=== PATIENT | female | born 1965 | race African-American/Black ===

== ENCOUNTER 2017-05-22 07:01 | Day surgery (SDC) | payer OTHER ==
[2017-05-21 17:03] VITALS: BMI 41.5
[2017-05-22] MEDS ORDERED: BETAMET ACET/BETAMET NA PH 30 MG/5 ML VIAL ONE (08:06)
[2017-05-22] MEDS ORDERED: LIDOCAINE HCL 1%, 10 MG/ML (20ML VIAL) ONE (08:06)
[2017-05-22] MEDS ORDERED: BUPIVACAINE HCL/PF 0.25% (2.5MG/ML) 10 ML VIAL ONE ×2 (08:06→12:44)
[2017-05-22] MEDS ORDERED: BETAMET ACET/BETAMET NA PH 30 MG/5 ML VIAL IJ ONE ×2 (08:35→08:43)
[2017-05-22] MEDS ORDERED: LIDOCAINE HCL 1%, 10 MG/ML (50 mL VIAL) IJ ONE ×2 (08:35→08:43)
[2017-05-22] MEDS ORDERED: BUPIVACAINE HCL/PF 0.25% (2.5MG/ML) 10 ML VIAL IJ ONE ×2 (08:35→08:43)
[2017-05-22] MEDS ORDERED: IOHEXOL 180 MG/1 ML ML IJ ONE ×2 (08:35→08:43)
[2017-05-22] MEDS ORDERED: MIDAZOLAM HCL 2 MG/2 ML SINGLE DOSE VIAL ONE (08:39)
[2017-05-22] MEDS ORDERED: PROPOFOL 20 ML ONE (08:50)
--- NOTE | 2017-05-22 10:05 | OP ---
DATE OF OPERATION: 05/22/2017 PREOPERATIVE DIAGNOSES: Low back pain, lumbar radiculopathy. POSTOPERATIVE DIAGNOSES: Low back pain, lumbar radiculopathy. PROCEDURE: Lumbar epidural steroid injection interlaminar at right L5-S1 level. ANESTHESIA: Local and MAC. ANESTHESIOLOGIST: Jodie Tate CRNA INDICATION FOR PROCEDURE: I discussed with her about risks, benefits, and alternatives of treatment, not only limited to infection, fever, headache, numbness, tingling, weakness, injury to blood vessels, muscles, and nerves. Patient understood all these and signed the written consent. DESCRIPTION OF PROCEDURE: Patient was brought to the OR, placed in the prone position with the head, abdomen, and legs supported with pillows. Lumbosacral area was prepped and draped with Betadine x3 and alcohol x3. Under fluoroscopy, right L4-L5 and L5-S1 areas were identified. At L4-L5 level on the right side, 3 mL of 1% lidocaine was injected into the skin and subcutaneous tissue. A 20-gauze Tuohy needle was used to approach the epidural space at this level under intermittent fluoroscopy. Osteophyte was causing obstruction to the needle to go into the epidural space. Needle was withdrawn. Then, the L5-S1 level on the right side was identified and 3 mL of 1% lidocaine was infiltrated into the skin and subcutaneous tissue. A 20-gauze 6-inch Tuohy needle was used to approach the epidural space with loss of resistance technique under intermittent fluoroscopy AP and oblique view. After the aspiration of blood and CSF, 2 mL of Omnipaque 180 was injected to see the flow of dye into the epidural space both cranially and caudally. Next 2.5 mL of Celestone mixed with 2.5 mL of 0.25% Marcaine, total 5 mL was injected at this level after negative aspiration. Tuohy needle was withdrawn, and 1 mL of 1 % lidocaine was infiltrated. Bleeding was checked. Betadine was wiped off. Sterile bandage was placed. The patient tolerated the procedure well. There were no immediate complications. Patient was transferred to recovery room. Patient was observed and discharged as per ASU criteria. Patient was told to apply ice; if any problem, call me or report to the ER. Followup appointment was given. GREGORY VALDEZ M.D. [id number] MTDD
[2017-05-22 11:08] VITALS: BP 126/70; PULSE 64; TEMP 97.8
== END 2017-05-22 11:28 | disposition home or self-care (01) ==
LOC: JASU-SURG 07:01
PROVIDERS: ATTEND Physical Medicine & Rehabilitation
PROC: 3E0S33Z Introduction of Anti-inflammatory into Epidural Space, Percutaneous Approach (ICD-10-PCS; 2017-05-22)
PROC: B01BYZZ Fluoroscopy of Spinal Cord using Other Contrast (ICD-10-PCS; 2017-05-22)
PROC: 3E0S3BZ Introduction of Anesthetic Agent into Epidural Space, Percutaneous Approach (ICD-10-PCS; principal; 2017-05-22 09:00)
DX: M54.16 Radiculopathy, lumbar region (principal); M54.5 Low back pain
CPT/HCPCS: 76000-TC

== ENCOUNTER 2017-10-02 07:13 | Day surgery (SDC) | payer OTHER ==
[2017-10-01 08:40] VITALS: BMI 40.1
[2017-10-02 07:33] VITALS: TEMP 98
[2017-10-02] MEDS ORDERED: BUPIVACAINE HCL/PF 0.25% (2.5MG/ML) 10 ML VIAL ONE (08:23)
[2017-10-02] MEDS ORDERED: LIDOCAINE HCL 1%, 10 MG/ML (20ML VIAL) ONE (08:23)
[2017-10-02] MEDS ORDERED: BETAMET ACET/BETAMET NA PH 30 MG/5 ML VIAL ONE (08:23)
[2017-10-02] MEDS ORDERED: MIDAZOLAM HCL 2 MG/2 ML SINGLE DOSE VIAL ONE (09:39)
[2017-10-02] MEDS ORDERED: PROPOFOL 20 ML ONE (09:39)
[2017-10-02] MEDS ORDERED: LIDOCAINE HCL 1%, 10 MG/ML (20ML VIAL) INF ONE (10:06)
[2017-10-02] MEDS ORDERED: IOHEXOL 180 MG/1 ML ML IJ ONE (10:06)
[2017-10-02] MEDS ORDERED: BETAMET ACET/BETAMET NA PH 30 MG/5 ML VIAL IJ ONE (10:07)
[2017-10-02] MEDS ORDERED: BUPIVACAINE HCL/PF 0.25% (2.5MG/ML) 10 ML VIAL IJ ONE (10:08)
[2017-10-02 11:39] VITALS: BP 120/70; PULSE 64
--- NOTE | 2017-10-02 14:29 | PROC ---
Procedure Note Procedure: Date of service: 10/02/2017 Preoperative Diagnosis: Low back pain and lumbar radiculopathy on right Postoperative Diagnosis: Same Procedure Performed: Lumbar Epidural Steroid Injection (LESI) on Right L4-5 with dye under Fluoroscopy Anesthesia: Local / MAC Anesthesiologist: Procedure: I discussed with the patient in detail about the risks, benefits, and alternatives to treatment not only limited to infection, headache, numbness , weakness, and injury to nerves, blood vessels and muscles. The patient understood, agreed and signed the written consent. The patient was placed in the prone position with the head, abdomen and legs supported with the pillows. The lumbosacral area was prepped and draped with Betadine times three in a sterile fashion. Lumbar vertebrae were identified under the C-arm. At L4-5level on the right side, 3 ml of 1 % Lidocaine was infiltrated into the skin and subcutaneous tissue. A 3 inch, #20 gauge Tuohy needle was advanced to the epidural space with loss of resistance technique under fluoroscopic guidance. Aspiration was negative for cerebrospinal fluid and blood. 2ml of Omnipaque ( radio-opaque dye) was injected to confirm the tip of the needle into epidural space and spread of dye. There was no CSF or vascular spread. The spread of dye was noted cranially and caudally on epidurogram. Aspiration was done again which was negative. A solution of 2.5 ml of Celestone, 2.5 ml of 0.25% Marcaine and a total of 5 ml was injected slowly. While Tuohy needle was withdrawn 2.0 ml of 1 % Lidocaine was infiltrated. Bleeding was checked. Betadine was wiped off. A sterile bandage was placed. The patient tolerated the procedure well. There were no immediate complications. The patient was transferred to the recovery room. The patient was observed for some time and discharged as per ASU criteria. The patient was told to apply ice at the injection site. Follow up appointment was given and also call my office at [phone]. If there is any problem, call my office or report to Emergency Room. Gary Murphy M.D.
== END 2017-10-02 11:30 | disposition home or self-care (01) ==
LOC: JASU-SURG 07:13
PROVIDERS: ATTEND Physical Medicine & Rehabilitation
PROC: 3E0R33Z Introduction of Anti-inflammatory into Spinal Canal, Percutaneous Approach (ICD-10-PCS; 2017-10-02)
PROC: B01BYZZ Fluoroscopy of Spinal Cord using Other Contrast (ICD-10-PCS; 2017-10-02)
PROC: 3E0R3BZ Introduction of Anesthetic Agent into Spinal Canal, Percutaneous Approach (ICD-10-PCS; principal; 2017-10-02 08:30)
DX: M54.16 Radiculopathy, lumbar region (principal); M54.5 Low back pain
CPT/HCPCS: 76000-TC

== ENCOUNTER 2017-12-23 05:34 | Emergency (ER) | payer OTHER ==
--- NOTE | 2017-12-23 05:38 | PDOC ---
History of Present Illness - General Stated Complaint: SEVERE ABDOMINAL PAIN Time Seen by Provider: 12/23/17 05:38 History Source: Patient Exam Limitations: No Limitations - History of Present Illness Travel History: No Initial Comments: 12/23/17 05:56 Best Contact:[phone] Pmhx: GERD, asthma Pshx: January 2017: Right total knee replacement, 2008:right shoulder arthroscopy, 2017: Left total knee replacement Allergies: Dilantin ordered, morphine, Ultram/swelling 52-year-old female presents to the ER complaining of abdominal pain since yesterday. Patient states yesterday morning she felt 5/10 intermittent nonradiating epigastric discomfort. Last evening epigastric discomfort started radiating to the right/lower and upper abdominal discomfort without fever, chills, nausea/vomiting, chest pain, shortness of breath, flank pains, urinary symptoms: Frequency/urgency/hesitancy, hematuria. There are no alleviating factors but is exacerbated on touch. 12/11/2017: Patient had a upper endoscopy/gastric biopsy which showed elevation Past History - Past Medical History Allergies/Adverse Reactions: Allergies Allergy/AdvReac Type Severity Reaction Status Date / Time hydromorphone HCl Allergy "SWELLING Verified 05/22/17 07:37 [From Dilaudid] OF FACE,HANDS,FEET" morphine Allergy "VOMITING" Verified 05/22/17 07:37 oxycodone HCl Allergy "ITCHY" Verified 05/22/17 07:37 [From OxyContin] tramadol HCl [From Ultram] Allergy "SWELLING Verified 05/22/17 07:37 OF FACE,HANDS,FEET" acetaminophen [From Percocet] AdvReac "SHAKY Verified 05/22/17 07:37 STOMACH" MED FOR NAUSEA-NAME UNKNOWN Allergy Severe TONGUE Uncoded 05/22/17 07:37 SWELLING Home Medications: Ambulatory Orders Montelukast Na [Singulair -] 10 mg PO PRN PRN 06/25/14 Amlodipine Besylate [Norvasc -] 5 mg PO DAILY 05/22/17 Ascorbate Calcium [Vitamin C] 500 mg PO BID 05/22/17 Cetirizine HCl [Zyrtec -] 10 mg PO DAILY 05/22/17 Albuterol Sulfate [Proair Hfa] 8.5 gm IH PRN PRN 09/17/17 Famotidine [Pepcid] 40 mg PO TID 09/17/17 Omeprazole 40 mg PO DAILY 09/17/17 Albuterol Sulfate [Proair Hfa] 8.5 gm IH DAILY 12/23/17 Cetirizine HCl [Zyrtec -] 10 mg PO DAILY 12/23/17 Cyclobenzaprine HCl [Flexeril 10 mg] 10 mg PO BID PRN 12/23/17 Gabapentin [Neurontin] 300 mg PO DAILY 12/23/17 Mometasone/Formoterol [Dulera 200 Mcg/5 Mcg Inhaler] 2 inh IH BID 12/23/17 Asthma: Yes (MODERATE) Cardiac Disorders: Yes (NEGATIVE CATH) Diabetes: Yes ("BORDERLINE") GI Disorders: Yes (H/O "BLOCKAGE" 2009) Disorders: No Hypercholesterolemia: Yes ("SLIGHTLY HIGH") Liver Disease: No - Surgical History Abdominal Surgery: Yes (Intestinal sx) Orthopedic Surgery: Yes (RIGHT SHOULDER SURGERY) - Suicide/Smoking/Psychosocial Hx Smoking Status: No Smoking History: Former smoker Have you smoked in the past 12 months: No Number of Cigarettes Smoked Daily: 0 If you are a former smoker, when did you quit?: 2004 Hx Alcohol Use: No Drug/Substance Use Hx: No Substance Use Type: None Hx Substance Use Treatment: No Review of Systems - Review of Systems Able to Perform ROS?: Yes Comments:: 12/23/17 05:59 CONSTITUTIONAL: Absent: fever, chills, diaphoresis, generalized weakness, malaise, loss of appetite HEENT: Absent: rhinorrhea, nasal congestion, throat pain, throat swelling, difficulty swallowing, mouth swelling, ear pain, eye pain, visual Changes CARDIOVASCULAR: Absent: chest pain, loss of consciousness, palpitations, irregular heart rate, peripheral edema RESPIRATORY: Absent: cough, shortness of breath, dyspnea with exertion, orthopnea, wheezing, stridor, hemoptysis GASTROINTESTINAL: +Abd pain/ Epigastric/right sided abd pain Absent:abdominal distension, nausea, vomiting, diarrhea, constipation, melena, hematochezia GENITOURINARY: Absent: dysuria, frequency, urgency, hesitancy, hematuria, flank pain, genital pain MUSCULOSKELETAL: Absent: myalgia, arthralgia, joint swelling SKIN: Absent: rash, itching, pallor HEMATOLOGIC/IMMUNOLOGIC: Absent: easy bleeding, easy bruising, lymphadenopathy, frequent infections ENDOCRINE: Absent: unexplained weight gain, unexplained weight loss, heat intolerance, cold intolerance NEUROLOGIC: Absent: headache, focal weakness or paresthesias, dizziness, unsteady gait, seizure, mental status changes, bladder or bowel incontinence PSYCHIATRIC: Absent: anxiety, depression, suicidal or homicidal ideation, hallucinations. Is the patient limited Nigerian proficient: No *Physical Exam - Physical Exam Comments: 12/23/17 05:59 GENERAL: Well developed, well nourished. Awake and alert. No acute distress. HEENT: Normocephalic, atraumatic. PERRLA, EOMI. No conjunctival pallor. Sclera are non- icteric. Moist mucous membranes. Oropharynx is clear. NECK: Supple. Full ROM. No JVD. Carotid pulses 2+ and symmetric, without bruits. No thyromegaly. No lymphadenopathy. CARDIOVASCULAR: Regular rate and rhythm. No murmurs, rubs, or gallops. Distal pulses are 2+ and symmetric. PULMONARY: No evidence of respiratory distress. Lungs clear to auscultation bilaterally. No wheezing, rales or rhonchi. ABDOMINAL: +epigastric/RUQ>LUQ pain Soft. Non-distended. No rebound or guarding. No organomegaly. Normoactive bowel sounds. MUSCULOSKELETAL Normal range of motion at all joints. No bony deformities or tenderness. No CVA tenderness. EXTREMITIES: No cyanosis. No clubbing. No edema. No calf tenderness. SKIN: Warm and dry. Normal capillary refill. No rashes. No jaundice. NEUROLOGICAL: Alert, awake, appropriate. Cranial nerves 2-12 intact. No deficits to light touch and temperature in face, upper extremities and lower extremities. No motor deficits in the in face, upper extremities and lower extremities. Normoreflexic in the upper and lower extremities. Normal speech. Toes are down- going bilaterally. Gait is normal without ataxia. PSYCHIATRIC: Cooperative. Good eye contact. Appropriate mood and affect. ED Treatment Course - LABORATORY CBC & Chemistry Diagram: 12/23/17 05:41 12/23/17 05:41 Progress Note - Progress Note Progress Note: 0701hrs: Signed out to KARIN Conrad
[2017-12-23] MEDS ORDERED: SODIUM CHLORIDE 1,000 ML IV STA (05:39)
[2017-12-23 05:50] LABS: BASO % 0.8 % (0-2.0); EOS % 2.3 % (0-4.5); HEMATOCRIT 39.6 % (32.4-45.2); HEMOGLOBIN 13.6 GM/dL (10.7-15.3); LYMPH % 32.6 % (8-40); MCH 31.1 pg (25.7-33.7); MCHC 34.4 g/dl (32.0-36.0); MEAN CELL VOLUME 90.6 fl (80-96); MEAN PLT VOLUME 8.9 fl (7.5-11.1); MONO % 9.1 % (3.8-10.2); NEUT % 55.2 % (42.8-82.8); PLATELET COUNT 211 K/MM3 (134-434); RBC 4.36 M/mm3 (3.60-5.2); WHITE BLOOD COUNT 5.2 K/mm3 (4.0-10.0)
[2017-12-23 05:53] VITALS: BMI 39.9
[2017-12-23] MEDS ORDERED: morphine CARPU-JECT 2 MG/1 ML DISP.SYRIN IVPUSH ONE (06:00)
[2017-12-23] MEDS ORDERED: ONDANSETRON 4 MG/2 ML VIAL IVPUSH ONE (06:01)
[2017-12-23] MEDS ORDERED: morphine SULFATE 4 MG/ML VIAL ONE (06:08)
[2017-12-23] MEDS ORDERED: ONDANSETRON 4 MG/2 ML VIAL ONE (06:08)
[2017-12-23 06:14] LABS: ALBUMIN 4.2 g/dl (3.4-5.0); ALK PHOS 82 U/L (45-117); ANION GAP 6 (8-16); BILIRUBIN,TOTAL 0.5 mg/dL (0.2-1.0); BLOOD UREA NITROGEN 13 mg/dL (7-18); CALCIUM 9.3 mg/dL (8.5-10.1); CHLORIDE 108 mmol/L (98-107); CO2 25 mmol/L (21-32); CREATININE 0.8 mg/dL (0.55-1.02); GLUCOSE,RANDOM 110 mg/dL (74-106); POTASSIUM 3.8 mmol/L (3.5-5.1); SGOT/AST 10 U/L (15-37); SGPT/ALT 18 U/L (12-78); SODIUM 139 mmol/L (136-145); TOT PROT 7.3 g/dl (6.4-8.2)
[2017-12-23 06:17] LABS: URINE APPEARANCE CLEAR; URINE BILIRUBIN NEGATIVE (<2.0 mg/dL); URINE BLOOD NEGATIVE (NEGATIVE); URINE COLOR YELLOW; URINE GLUCOSE (UA) NEGATIVE (NEGATIVE); URINE KETONE NEGATIVE (NEGATIVE); URINE NITRITE NEGATIVE (NEGATIVE); URINE PROTEIN NEGATIVE (NEGATIVE)
[2017-12-23 06:28] LABS: URINE LEUK ESTERASE 3+ (NEGATIVE)
[2017-12-23 06:32] LABS: EPI CELLS RARE /HPF (FEW); URINE MUCUS RARE
[2017-12-23] MEDS ORDERED: MAG HYDROX/AL HYDROX/SIMETH 30 ML UNIT-DOSE CUP PO ONE (07:01)
[2017-12-23] MEDS ORDERED: MAG HYDROX/AL HYDROX/SIMETH 30 ML UNIT-DOSE CUP ONE (07:03)
[2017-12-23] MEDS ORDERED: amLODIPine BESYLATE 5 MG TABLET (FP) PO ONE (08:04)
[2017-12-23] MEDS ORDERED: PANTOPRAZOLE SODIUM 40 MG VIAL IVPUSH ONE (08:05)
--- NOTE | 2017-12-23 08:08 | PDOC ---
*Physical Exam - Vital Signs Last Vital Signs Temp Pulse Resp BP Pulse Ox 97.7 F 63 17 126/80 99 12/23/17 05:35 12/23/17 07:47 12/23/17 07:47 12/23/17 07:47 12/23/17 07:47 - Physical Exam General Appearance: Yes: Nourished, Obese HEENT: positive: Normal Voice Respiratory/Chest: positive: Lungs Clear Cardiovascular: positive: Regular Rate Gastrointestinal/Abdominal: positive: Normal Bowel Sounds, Tender (epigastric), Soft. negative: Guarding, Rebound Extremity: positive: Normal Inspection Integumentary: positive: Normal Color, Dry, Warm Neurologic: positive: Fully Oriented, Alert ED Treatment Course - LABORATORY CBC & Chemistry Diagram: 12/23/17 05:41 12/23/17 05:41 - ADDITIONAL ORDERS Additional order review: Laboratory Results 12/23/17 12/23/17 12/23/17 05:41 05:41 04:15 Sodium 139 Potassium 3.8 Chloride 108 H Carbon Dioxide 25 Anion Gap 6 L BUN 13 Creatinine 0.8 Creat Clearance w eGFR > 60 Random Glucose 110 H Calcium 9.3 Total Bilirubin 0.5 AST 10 L ALT 18 Alkaline Phosphatase 82 Total Protein 7.3 Albumin 4.2 Lipase 101 Urine Color Yellow Urine Appearance Clear Urine pH 7.0 Ur Specific Rueter 1.019 Urine Protein Negative Urine Glucose (UA) Negative Urine Ketones Negative Urine Blood Negative Urine Nitrite Negative Urine Bilirubin Negative Urine Urobilinogen 2.0 H Ur Leukocyte Esterase 3+ H D Urine WBC (Auto) 5 Urine RBC (Auto) 1 Ur Epithelial Cells Rare Urine Mucus Rare 12/23/17 05:41 RBC 4.36 MCV 90.6 MCHC 34.4 RDW 14.0 MPV 8.9 Neutrophils % 55.2 D Lymphocytes % 32.6 D Monocytes % 9.1 Eosinophils % 2.3 Basophils % 0.8 - Medications Given in the ED: ED Medications Discontinued Medications Generic Name Dose Route Start Last Admin Trade Name Freq PRN Reason Stop Dose Admin Al Hydroxide/Mg Hydroxide 30 ml 12/23/17 07:01 12/23/17 07:13 Mylanta Oral Suspension - PO 12/23/17 07:02 30 ml ONCE ONE Administration Sodium Chloride 1,000 mls @ 1,000 mls/hr 12/23/17 05:39 12/23/17 06:07 Normal Saline - IV 12/23/17 06:38 1,000 mls/hr ASDIR STA Administration Morphine Sulfate 2 mg 12/23/17 06:00 12/23/17 06:15 Morphine Injection - IVPUSH 12/23/17 06:01 2 mg ONCE ONE Administration Ondansetron HCl 4 mg 12/23/17 06:01 12/23/17 06:15 Zofran Injection IVPUSH 12/23/17 06:02 4 mg ONCE ONE Administration Medical Decision Making - Medical Decision Making 12/23/17 08:03 I have received report from SANDY Morris regarding this patient. Pt's initial chief complaint: epigastric pain then became diffuse Pt's work up completed prior to sign out:labs, start po contrast for CT of abd/ pelvis Pt treatment given from prior staff:pain meds Pt plan to be completed:CT abd/pelvic pending Dispo:home vs admission 12/23/17 08:05 Restarted home meds of norvasc 5 mg (did not take yesterday or today) Protonix for reflux (home med is pepcid and omeprezole) Pt states her surgical history is extensive for abd surgeries in the past -ovarian cysts, with bilateral removal by [employer]AFF NURSE -hysterectomy -small bowel obstructions -colectomy in past -bilateral TKR -right shoulder sx PMH: -asthma on Breo, singular, proair -HTN on norvasc -gerd on omeprezole and pepcid -LBP on flexeril PRN completed contrast orally 12/23/17 10:06 CT completed noted narrowing of the terminal ileum with focal dilatation of distal ileal loops There is mild degreee of inflammatory change within the adjacent mesenteric fat suggestive of Chron's disease. Pt will be discharge to home on a bland diet. she will be following up with her GI MD this week. Copy of report given to pt *DC/Admit/Observation/Transfer Diagnosis at time of Disposition: Epigastric discomfort - Discharge Dispostion Disposition: HOME Condition at time of disposition: Stable Admit: No - Referrals Referrals: Ian Cole MD [Primary Care Provider] - - Patient Instructions Printed Discharge Instructions: DI for Crohn's Disease Additional Instructions: Discharge instructions 1. Please follow up with your primary physician within the next few days and explain that you have been seen here in the Emergency Room. This includes going to your GI physician this week. Bring a copy of the report to your doctor to review 2. If you experience any worsening of symptoms, please return to the ER 3. Eat a bland diet,no alcohol, no spices, no heavy pastas or meats that are stringy. 4. Drink plenty of water - Post Discharge Activity Forms/Work/School Notes: Back to Work
[2017-12-23] MEDS ORDERED: amLODIPine BESYLATE 5 MG TABLET (FP) ONE (08:10)
[2017-12-23] MEDS ORDERED: PANTOPRAZOLE SODIUM 40 MG/100 ML BAG IVPB ONE (08:10)
[2017-12-23 10:46] VITALS: BP 125/71; PULSE 81; TEMP 98.1
== END 2017-12-23 10:35 | disposition home or self-care (01) ==
LOC: JER 05:34
PROC: 3E0337Z Introduction of Electrolytic and Water Balance Substance into Peripheral Vein, Percutaneous Approach (ICD-10-PCS; principal; 2017-12-23)
PROC: 3E033NZ Introduction of Analgesics, Hypnotics, Sedatives into Peripheral Vein, Percutaneous Approach (ICD-10-PCS; 2017-12-23)
PROC: 3E033GC Introduction of Other Therapeutic Substance into Peripheral Vein, Percutaneous Approach (ICD-10-PCS; 2017-12-23)
DX: K50.90 Crohn's disease, unspecified, without complications (principal); J45.40 Moderate persistent asthma, uncomplicated; E11.9 Type 2 diabetes mellitus without complications; E78.00 Pure hypercholesterolemia, unspecified; Z98.61 Coronary angioplasty status; Z87.891 Personal history of nicotine dependence; Z96.653 Presence of artificial knee joint, bilateral; Z87.19 Personal history of other diseases of the digestive system; Z90.49 Acquired absence of other specified parts of digestive tract; Z90.722 Acquired absence of ovaries, bilateral; Z88.8 Allergy status to other drugs, medicaments and biological substances
CPT/HCPCS: 36415; 74177-TC; 80053; 81003; 81015; 83690; 85025; 96361; 96374; 96375; 99283-25; J7030

== ENCOUNTER 2018-01-08 07:57 | Day surgery (SDC) | payer OTHER ==
[2018-01-07 10:20] VITALS: BMI 40.3
[~2018-01-08 07:57] MED LIST: BETAMET ACET/BETAMET NA PH 30 MG/5 ML VIAL IJ ONE; BUPIVACAINE HCL/PF 0.25% (2.5MG/ML) 10 ML VIAL IJ ONE; IOHEXOL 180 MG/1 ML ML IJ ONE; LIDOCAINE HCL 1%, 10 MG/ML (50 mL VIAL) IJ ONE
[2018-01-08 08:31] VITALS: TEMP 97.9
[2018-01-08] MEDS ORDERED: BETAMET ACET/BETAMET NA PH 30 MG/5 ML VIAL ONE (09:10)
[2018-01-08] MEDS ORDERED: LIDOCAINE HCL 1%, 10 MG/ML (20ML VIAL) ONE (09:10)
[2018-01-08] MEDS ORDERED: BUPIVACAINE HCL/PF 0.25% (2.5MG/ML) 10 ML VIAL ONE (09:11)
[2018-01-08] MEDS ORDERED: BUPIVACAINE HCL/PF 0.25% (2.5MG/ML) 10 ML VIAL IJ ONE (10:03)
[2018-01-08] MEDS ORDERED: IOHEXOL 180 MG/1 ML ML IJ ONE (10:03)
[2018-01-08] MEDS ORDERED: BETAMET ACET/BETAMET NA PH 30 MG/5 ML VIAL IJ ONE (10:04)
[2018-01-08] MEDS ORDERED: LIDOCAINE HCL 1%, 10 MG/ML (50 mL VIAL) IJ ONE (10:04)
[2018-01-08] MEDS ORDERED: ONDANSETRON 4 MG/2 ML VIAL IVPUSH PRN (10:06)
[2018-01-08] MEDS ORDERED: LACTATED RINGERS SOLUTION 1,000 ML IV SCH (10:15)
[2018-01-08 13:38] VITALS: PULSE 68
[2018-01-08 13:45] VITALS: BP 126/85
--- NOTE | 2018-01-21 10:19 | PROC ---
Procedure Note Procedure: Date of service: 01/08/2018 Preoperative Diagnosis: Low back pain and lumbar radiculopathy on right Postoperative Diagnosis: Same Procedure Performed: Lumbar Epidural Steroid Injection (LESI) on Right L4-5 with dye under Fluoroscopy Anesthesia: Local / MAC Anesthesiologist: Procedure: I discussed with the patient in detail about the risks, benefits, and alternatives to treatment not only limited to infection, headache, numbness , weakness, and injury to nerves, blood vessels and muscles. The patient understood, agreed and signed the written consent. The patient was placed in the prone position with the head, abdomen and legs supported with the pillows. The lumbosacral area was prepped and draped with Betadine times three in a sterile fashion. Lumbar vertebrae were identified under the C-arm. At L4-5/ L5- S1 level on the right side, 3 ml of 1 % Lidocaine was infiltrated into the skin and subcutaneous tissue. A 3 inch, #20 gauge Tuohy needle was advanced to the epidural space with loss of resistance technique under fluoroscopic guidance. Aspiration was negative for cerebrospinal fluid and blood. 2ml of Omnipaque ( radio-opaque dye) was injected to confirm the tip of the needle into epidural space and spread of dye. There was no CSF or vascular spread. The spread of dye was noted cranially and caudally on epidurogram. Aspiration was done again which was negative. A solution of 2.5 ml of Celestone , 2.5 ml of 0.25% Marcaine and a total of 5 ml was injected slowly. While Tuohy needle was withdrawn 2.0 ml of 1 % Lidocaine was infiltrated. Bleeding was checked. Betadine was wiped off. A sterile bandage was placed. The patient tolerated the procedure well. There were no immediate complications. The patient was transferred to the recovery room. The patient was observed for some time and discharged as per ASU criteria. The patient was told to apply ice at the injection site. Follow up appointment was given and also call my office at . If there is any problem, call my office or report to Emergency Room. Gary Murphy M.D.
== END 2018-01-08 11:30 | disposition home or self-care (01) ==
LOC: JASU-SURG 07:57
PROVIDERS: ATTEND Physical Medicine & Rehabilitation
PROC: 3E0R33Z Introduction of Anti-inflammatory into Spinal Canal, Percutaneous Approach (ICD-10-PCS; 2018-01-08)
PROC: B01BYZZ Fluoroscopy of Spinal Cord using Other Contrast (ICD-10-PCS; 2018-01-08)
PROC: 3E0R3BZ Introduction of Anesthetic Agent into Spinal Canal, Percutaneous Approach (ICD-10-PCS; principal; 2018-01-08 09:30)
DX: M54.16 Radiculopathy, lumbar region (principal); M54.5 Low back pain
CPT/HCPCS: 76000-TC-FY

== ENCOUNTER 2018-05-28 09:20 | Inpatient (IN) | payer OTHER ==
--- NOTE | 2018-05-28 09:51 | PDOC ---
History of Present Illness - General Chief Complaint: Pain Stated Complaint: ABD PAIN Time Seen by Provider: 05/28/18 09:51 - History of Present Illness Initial Comments: 53 year old female with past medical history significant for asthma, hypertension, lower back pain, bowel perforation, bowel resection hysterectomy, oophorectomy, small bowel obstruction, colonic ulcers, and subsequent intermittent abdominal pain presenting with epigastric pain for the past few days that has acutely worsened this AM. States that she has had similar pains in the past and was in our ED 5 months prior with a similar presentation with pain in her epigastrium and her right side. She was treated symptomatically and discharged. She has been worked up for her colonic ulcers and extensive testing by [facility]'s specialist. 05/28/18 11:28 Past History - Past Medical History Allergies/Adverse Reactions: Allergies Allergy/AdvReac Type Severity Reaction Status Date / Time hydromorphone HCl Allergy Severe "SWELLING Verified 01/07/18 10:22 [From Dilaudid] OF FACE,HANDS,FEET" tramadol HCl [From Ultram] Allergy Severe "SWELLING Verified 01/07/18 10:40 OF FACE,HANDS,FEET" oxycodone HCl AdvReac Severe "ITCHY" Verified 01/07/18 10:40 [From OxyContin] morphine AdvReac Intermediate "VOMITING" Verified 01/07/18 10:40 acetaminophen [From Percocet] AdvReac "SHAKY Verified 01/07/18 10:40 STOMACH" MED FOR NAUSEA-NAME UNKNOWN Allergy Severe TONGUE Uncoded 01/07/18 10:40 SWELLING Home Medications: Ambulatory Orders Montelukast Na [Singulair -] 10 mg PO PRN PRN 06/25/14 Amlodipine Besylate [Norvasc -] 5 mg PO DAILY 05/22/17 Ascorbate Calcium [Vitamin C] 500 mg PO ONCE 05/22/17 Cetirizine HCl [Zyrtec -] 10 mg PO DAILY PRN 05/22/17 Famotidine [Pepcid] 40 mg PO HS 09/17/17 Omeprazole 40 mg PO HS 09/17/17 Albuterol Sulfate [Proair Hfa] 8.5 gm IH DAILY PRN 12/23/17 Cyclobenzaprine HCl [Flexeril 10 mg] 10 mg PO BID PRN 12/23/17 Gabapentin [Neurontin] 600 mg PO HS 12/23/17 Mometasone/Formoterol [Dulera 200 Mcg/5 Mcg Inhaler] 2 inh IH BID PRN 12/23/17 Asthma: Yes (MODERATE) Cardiac Disorders: Yes (NEGATIVE CATH) COPD: No Diabetes: Yes ("BORDERLINE") GI Disorders: Yes (H/O "BLOCKAGE" 2009, POSTOP COMPLICATIONS, NO SX INTERVENTION ) Disorders: No Hypercholesterolemia: Yes ("SLIGHTLY HIGH") Liver Disease: No Thyroid Disease: No - Surgical History Abdominal Surgery: No (Intestinal sx, FOR MULTIPLE SXS) Appendectomy: No Cardiac Surgery: No Cholecystectomy: No Lung Surgery: No Neurologic Surgery: No Orthopedic Surgery: Yes (RIGHT SHOULDER SURGERY) - Immunization History Immunization Up to Date: Yes - Suicide/Smoking/Psychosocial Hx Smoking Status: No Smoking History: Never smoked Have you smoked in the past 12 months: No Number of Cigarettes Smoked Daily: 0 If you are a former smoker, when did you quit?: 2004 Information on smoking cessation initiated: No Hx Alcohol Use: No Drug/Substance Use Hx: No Substance Use Type: None Hx Substance Use Treatment: No *Physical Exam - Vital Signs Last Vital Signs Temp Pulse Resp BP Pulse Ox 98.6 F 75 16 131/94 98 05/28/18 09:31 05/28/18 09:31 05/28/18 09:31 05/28/18 09:31 05/28/18 09:31 ED Treatment Course - LABORATORY CBC & Chemistry Diagram: 05/28/18 11:30 05/28/18 11:30 Medical Decision Making - Medical Decision Making 53 y/o female with abdominal pain and history of multiple abdominal surgeries and suspicion for IBD although testing thus far by inflammatory bowel disease specialists have been negative thus far. Labs WNL and VSS. CT showing dilated right lower quadrant bowel loop with possible partial SBO. After speaking to Dr. Nath working diagnosis is idiopathic enteritis vs. IBD so we will give IV hydration, ceftriaxone, and surgical consult. 05/28/18 15:36 *DC/Admit/Observation/Transfer Diagnosis at time of Disposition: Epigastric discomfort, Epigastric pain, SBO (small bowel obstruction) - Discharge Dispostion Condition at time of disposition: Stable Decision to Admit order: Yes - Referrals - Patient Instructions - Post Discharge Activity
[2018-05-28] MEDS ORDERED: MAG HYDROX/AL HYDROX/SIMETH 30 ML UNIT-DOSE CUP PO ONE (10:40)
[2018-05-28] MEDS ORDERED: SODIUM CHLORIDE 0.9% 500 ML INFUS.BAG IV ONE (10:44)
[2018-05-28] MEDS ORDERED: MAG HYDROX/AL HYDROX/SIMETH 30 ML UNIT-DOSE CUP ONE (10:51)
[2018-05-28] MEDS ORDERED: ACETAMINOPHEN 1000 MG/100 ML VIAL (NON FORMULARY) IVPB ONE (11:29)
[2018-05-28 11:42] LABS: BASO % 0.9 % (0-2.0); EOS % 1.8 % (0-4.5); HEMATOCRIT 40.7 % (32.4-45.2); HEMOGLOBIN 13.5 GM/dL (10.7-15.3); LYMPH % 32.5 % (8-40); MCH 30.2 pg (25.7-33.7); MCHC 33.1 g/dl (32.0-36.0); MEAN CELL VOLUME 91.2 fl (80-96); MONO % 7.3 % (3.8-10.2); NEUT % 57.5 % (42.8-82.8); PLATELET COUNT 247 K/MM3 (134-434); RBC 4.46 M/mm3 (3.60-5.2); RDW 14.6 % (11.6-15.6)
[2018-05-28] MEDS ORDERED: ACETAMINOPHEN INJECTION 100 ML IVPB ONE (11:59)
[2018-05-28 12:00] LABS: AMYLASE 65 U/L (25-115); LIPASE 104 U/L (73-393)
[2018-05-28 12:03] LABS: ANION GAP 10 MMOL/L (8-16); BILIRUBIN,TOTAL 0.5 mg/dL (0.2-1); BLOOD UREA NITROGEN 15 mg/dL (7-18); CALCIUM 9.4 mg/dL (8.5-10.1); CHLORIDE 106 mmol/L (98-107); CO2 27 mmol/L (21-32); CREATININE 0.7 mg/dL (0.55-1.3); GLUCOSE,RANDOM 94 mg/dL (74-106); POTASSIUM 4.4 mmol/L (3.5-5.1); SGOT/AST 14 U/L (15-37); SGPT/ALT 20 U/L (13-61); SODIUM 143 mmol/L (136-145); TOT PROT 7.4 g/dl (6.4-8.2)
[2018-05-28 12:04] LABS: ALK PHOS 86 U/L (45-117)
[2018-05-28 12:21] LABS: URINE APPEARANCE CLEAR; URINE BILIRUBIN NEGATIVE (<2.0 mg/dL); URINE COLOR YELLOW; URINE GLUCOSE (UA) NEGATIVE (NEGATIVE); URINE KETONE NEGATIVE (NEGATIVE); URINE NITRITE NEGATIVE (NEGATIVE); URINE PROTEIN NEGATIVE (NEGATIVE); URINE UROBILINOGEN NEGATIVE mg/dL (0.2-1.0)
[2018-05-28 12:26] LABS: URINE LEUK ESTERASE 2+ (NEGATIVE)
[2018-05-28 12:38] LABS: EPI CELLS RARE /HPF (FEW)
--- NOTE | 2018-05-28 12:44 | PDOC ---
Attending Attestation - Resident Resident Name: Karina Menon - ED Attending Attestation I have performed the following: I have examined & evaluated the patient, The case was reviewed & discussed with the resident, I agree w/resident's findings & plan - HPI HPI: 05/28/18 12:41 53-year-old female with history of partial bowel resection secondary to surgical complication during hysterectomy/oophorectomy, subsequent complications of obstruction with last episode in 2010, now with recurring intermittent abdominal pain with workup in December showing terminal ileitis suspicious for inflammatory bowel disease and subsequent colonoscopy showing colonic ulcers but not consistent with ulcerative colitis or Crohn's disease. In the setting, patient presents with 1 day of upper and right-sided abdominal pain without nausea or vomiting or diarrhea or constipation or bloody stool. No fevers or chills. - Physicial Exam PE: 05/28/18 12:42 Afebrile. Vital signs normal. Well-appearing, no jaundice or pallor Abdomen is soft and nondistended. Tender with guarding in the right lower quadrant, rebound to the right abdomen, bowel sounds are within normal limits - Medical Decision Making 05/28/18 12:42 53-year-old female with history of abdominal surgery complicated by obstruction , also with intermittent flare of colonic ulcers now presents with abdominal pain since yesterday, similar to past ulcer pain. Suspect inflammatory process, was previously diagnosed with terminal ileitis in December and this could be similar presentation. Less consistent with obstruction.. Vital signs normal. Labs, urinalysis IV fluids, pain control CT of the abdomen and pelvis Reassess Heart Score/ECG Review #1 ECG reviewed & interpreted by me at: 12:14 General ECG Interpretation: Sinus Rhythm, Normal Rate (62), Normal Intervals ( qtc 424), No acute ischemic changes
[2018-05-28] MEDS ORDERED: morphine CARPU-JECT 2 MG/1 ML DISP.SYRIN IVPUSH ONE (14:52)
[2018-05-28] MEDS ORDERED: MORPHINE SULFATE 2 MG/ML VIAL ONE (15:22)
--- NOTE | 2018-05-28 15:25 | PN ---
Progress Note (short form) - Note Progress Note: Asked to evaluate patient For Dr. Nath. Ms. Mcbride explains that she follows actively with Dr. Fonseca. I Advised that they call Dr. Fonseca's office for further evaluation.
[2018-05-28] MEDS ORDERED: CEFTRIAXONE 1,000 MG in DEXTROSE 5%-WATER - 50 ML IVPB ONE (15:44)
[2018-05-28] MEDS ORDERED: DEXTROSE 5%-0.45% SALINE 1,000 ML IV SCH (15:45)
--- NOTE | 2018-05-28 16:16 | EKG ---
Test Reason : Blood Pressure : / mmHG Vent. Rate : 062 BPM Atrial Rate : 062 BPM P-R Int : 164 ms QRS Dur : 078 ms QT Int : 418 ms P-R-T Axes : 059 047 047 degrees QTc Int : 424 ms POOR DATA QUALITY, INTERPRETATION MAY BE ADVERSELY AFFECTED NORMAL SINUS RHYTHM POSSIBLE LEFT ATRIAL ENLARGEMENT BORDERLINE ECG WHEN COMPARED WITH ECG OF 03-JAN-2014 03:09, NO SIGNIFICANT CHANGE WAS FOUND Confirmed by Darius Pedersen ([id number]) on 05/28/2018 4:15:49 PM Referred By: Confirmed By:Darius Pedersen
[2018-05-28] MEDS ORDERED: DEXTROSE 5%-WATER - 50 ML IVPB ONE (17:11)
[2018-05-28] MEDS ORDERED: cefTRIAXone SODIUM 1 GM VIAL ONE (17:11)
[2018-05-28] MEDS ORDERED: CEFTRIAXONE 1 GM in DEXTROSE 5%-WATER - 50 ML IVPB ONE (17:15)
[2018-05-28] MEDS ORDERED: PATIENT'S OWN MEDICATION (NON-FORMULARY) (Mometasone/Formoterol [Dulera 200 Mcg/5 Mcg Inha IH PRN (17:57)
[2018-05-28] MEDS ORDERED: ALBUTEROL SO4 8 GM HFA INHALER IH PRN (17:57)
[2018-05-28] MEDS ORDERED: MONTELUKAST NA 10 MG TABLET PO SCH (17:57)
[2018-05-28] MEDS: DEXTROSE 5%-0.45% SALINE 1,000 ML IV SCH (18:44)
[2018-05-28] MEDS ORDERED: ONDANSETRON 4 MG/2 ML VIAL IVPUSH PRN (20:17)
[2018-05-28] MEDS: MORPHINE SULFATE 2 MG/ML VIAL IVPUSH PRN (20:33)
--- NOTE | 2018-05-28 21:05 | HP ---
Admitting History and Physical - Past Medical History Gastrointestinal: Yes: GERD - Smoking History Smoking history: Never smoked Have you smoked in the past 12 months: No Aproximately how many cigarettes per day: 0 If you are a former smoker, when did you quit?: 2004 - Alcohol/Substance Use Hx Alcohol Use: No Home Medications - Allergies Allergies/Adverse Reactions: Allergies Allergy/AdvReac Type Severity Reaction Status Date / Time hydromorphone HCl Allergy Severe "SWELLING Verified 01/07/18 10:22 [From Dilaudid] OF FACE,HANDS,FEET" tramadol HCl [From Ultram] Allergy Severe "SWELLING Verified 01/07/18 10:40 OF FACE,HANDS,FEET" oxycodone HCl AdvReac Severe "ITCHY" Verified 01/07/18 10:40 [From OxyContin] morphine AdvReac Intermediate "VOMITING" Verified 01/07/18 10:40 acetaminophen [From Percocet] AdvReac "SHAKY Verified 01/07/18 10:40 STOMACH" MED FOR NAUSEA-NAME UNKNOWN Allergy Severe TONGUE Uncoded 01/07/18 10:40 SWELLING - Home Medications Home Medications: Ambulatory Orders Montelukast Na [Singulair -] 10 mg PO PRN PRN 06/25/14 Amlodipine Besylate [Norvasc -] 5 mg PO DAILY 05/22/17 Ascorbate Calcium [Vitamin C] 500 mg PO ONCE 05/22/17 Cetirizine HCl [Zyrtec -] 10 mg PO DAILY PRN 05/22/17 Famotidine [Pepcid] 40 mg PO HS 09/17/17 Omeprazole 40 mg PO HS 09/17/17 Albuterol Sulfate [Proair Hfa] 8.5 gm IH DAILY PRN 12/23/17 Cyclobenzaprine HCl [Flexeril 10 mg] 10 mg PO BID PRN 12/23/17 Gabapentin [Neurontin] 600 mg PO HS 12/23/17 Mometasone/Formoterol [Dulera 200 Mcg/5 Mcg Inhaler] 2 inh IH BID PRN 12/23/17 Physical Examination Vital Signs: Vital Signs Temperature 98.6 F 05/28/18 18:00 Pulse Rate 78 05/28/18 18:00 Respiratory Rate 18 05/28/18 18:00 Blood Pressure 123/69 05/28/18 18:00 O2 Sat by Pulse Oximetry (%) 97 05/28/18 18:00 Labs: CBC, BMP 05/28/18 11:30 05/28/18 11:30
--- NOTE | 2018-05-28 21:05 | PN ---
Progress Note, Physician - Current Medication List Current Medications: Active Medications Albuterol Sulfate (Ventolin Hfa Inhaler -) 1 puff IH Q6H PRN PRN Reason: SHORTNESS OF BREATH Amlodipine Besylate (Norvasc -) 5 mg PO DAILY [facility] Gabapentin (Neurontin -) 600 mg PO HS [facility] Heparin Sodium (Porcine) (Heparin -) 5,000 unit SQ BID [facility] Dextrose/Sodium Chloride (D5-1/2ns -) 1,000 mls @ 75 mls/hr IV ASDIR [facility] Last Admin: 05/28/18 18:44 Dose: 75 mls/hr Influenza Virus Vaccine Quadrival (Flulaval Quad [id number]) 60 mcg IM .ONCE ONE Stop: 05/29/18 09:01 Montelukast Sodium (Singulair -) 10 mg PO HS [facility] Morphine Sulfate (Morphine Sulfate) 2 mg IVPUSH Q6H PRN PRN Reason: PAIN LEVEL 4 - 6 Last Admin: 05/28/18 20:33 Dose: 2 mg Non-Formulary Medication (Mometasone/Formoterol [Dulera 200 Mcg/5 Mcg Inhaler]) 2 inh IH BID PRN PRN Reason: ASTHMA Ondansetron HCl (Zofran Injection) 4 mg IVPUSH Q6H PRN PRN Reason: NAUSEA AND/OR VOMITING Pantoprazole Sodium (Protonix -) 40 mg PO DAILY [facility] - Objective Vital Signs: Vital Signs Temperature 98.6 F 05/28/18 18:00 Pulse Rate 78 05/28/18 18:00 Respiratory Rate 18 05/28/18 18:00 Blood Pressure 123/69 05/28/18 18:00 O2 Sat by Pulse Oximetry (%) 97 05/28/18 18:00 Labs: CBC, BMP 05/28/18 11:30 05/28/18 11:30
--- NOTE | 2018-05-28 21:19 | CONSULT ---
Consult Consult Specialty:: General Surgery Reason for Consultation:: Partial SBO - History of Present Illness Chief Complaint: Abdominal Pain History of Present Illness: 53 yo female PMH obesity, GERD, PUD, osteoarthritis presented to ED with severe right lower abdominal pain, nausea no vomiting. Partial bowel resection secondary to surgical complication during hysterectomy/oophorectomy in 2008, subsequent complications of obstruction with last episode in 2010, now with recurring intermittent abdominal pain with workup in December showing terminal ileitis suspicious for inflammatory bowel disease and subsequent colonoscopy showing colonic ulcers but not consistent with ulcerative colitis or Crohn's disease. In the setting, patient presents with 1 day of upper and right-sided abdominal pain without nausea or vomiting or diarrhea or constipation or bloody stool. No fevers or chills. we were asked to assess - History Source History Provided By: Patient, Medical Record Limitations to Obtaining History: No Limitations - Past Medical History Gastrointestinal: Yes: GERD, Other (terminal ileitis ) Additional Medical History: obesity - Past Surgical History Past Surgical History: Yes: Hysterectomy - Alcohol/Substance Use Hx Alcohol Use: No - Smoking History Smoking history: Never smoked Have you smoked in the past 12 months: No Aproximately how many cigarettes per day: 0 If you are a former smoker, when did you quit?: 2004 Home Medications - Allergies Allergies/Adverse Reactions: Allergies Allergy/AdvReac Type Severity Reaction Status Date / Time hydromorphone HCl Allergy Severe "SWELLING Verified 01/07/18 10:22 [From Dilaudid] OF FACE,HANDS,FEET" tramadol HCl [From Ultram] Allergy Severe "SWELLING Verified 01/07/18 10:40 OF FACE,HANDS,FEET" oxycodone HCl AdvReac Severe "ITCHY" Verified 01/07/18 10:40 [From OxyContin] morphine AdvReac Intermediate "VOMITING" Verified 01/07/18 10:40 acetaminophen [From Percocet] AdvReac "SHAKY Verified 01/07/18 10:40 STOMACH" MED FOR NAUSEA-NAME UNKNOWN Allergy Severe TONGUE Uncoded 01/07/18 10:40 SWELLING - Home Medications Home Medications: Ambulatory Orders Montelukast Na [Singulair -] 10 mg PO PRN PRN 06/25/14 Amlodipine Besylate [Norvasc -] 5 mg PO DAILY 05/22/17 Ascorbate Calcium [Vitamin C] 500 mg PO ONCE 05/22/17 Cetirizine HCl [Zyrtec -] 10 mg PO DAILY PRN 05/22/17 Famotidine [Pepcid] 40 mg PO HS 09/17/17 Omeprazole 40 mg PO HS 09/17/17 Albuterol Sulfate [Proair Hfa] 8.5 gm IH DAILY PRN 12/23/17 Cyclobenzaprine HCl [Flexeril 10 mg] 10 mg PO BID PRN 12/23/17 Gabapentin [Neurontin] 600 mg PO HS 12/23/17 Mometasone/Formoterol [Dulera 200 Mcg/5 Mcg Inhaler] 2 inh IH BID PRN 12/23/17 Review of Systems - Review of Systems Constitutional: denies: Chills, Fever Eyes: denies: Blind Spots, Recent Change in Vision HENT: denies: Difficult Swallowing, Throat Pain Neck: denies: Decreased ROM, Other Cardiovascular: denies: Chest Pain, Palpitations Respiratory: denies: Cough, SOB Gastrointestinal: reports: Abdominal Pain, Bloating, Indigestion, Nausea Genitourinary: denies: Discharge, Dysuria, Flank Pain Breasts: denies: Breast Implants Musculoskeletal: denies: Back Pain, Muscle Pain Integumentary: denies: Eczema, Rash, Wound Neurological: denies: Seizure, Syncope Endocrine: denies: Unexplained Weight Gain, Unexplained Weight Loss Hematology/Lymphatic: denies: Easily Bruised Psychiatric: denies: Anxiety, Depression Physical Exam Vital Signs: Vital Signs Temperature 98.6 F 05/28/18 18:00 Pulse Rate 78 05/28/18 18:00 Respiratory Rate 18 05/28/18 18:00 Blood Pressure 123/69 05/28/18 18:00 O2 Sat by Pulse Oximetry (%) 97 05/28/18 18:00 Vital Signs Period Temp Pulse Resp BP Sys/Galvin Pulse Ox Last 24 Hr 98.4 F-98.7 F 60-78 16-18 108-143/63-94 97-98 Constitutional: Yes: Well Nourished, No Distress, Calm, Obese Eyes: Yes: Conjunctiva Clear, EOM Intact HENT: Yes: Atraumatic, Normocephalic Neck: Yes: Supple, Trachea Midline Cardiovascular: Yes: Regular Rate and Rhythm, S1, S2 Respiratory: Yes: Regular, CTA Bilaterally Gastrointestinal: Yes: Normal Bowel Sounds, Soft, Abdomen, Obese. No: Distention, Hernia, Palpable Mass, Tenderness, Tenderness, Epigastrium, Tenderness, Rebound ...Rectal Exam: Yes: Sphincter Tone Poor. No: Mass Renal/: No: CVA Tenderness - Left, CVA Tenderness - Right Musculoskeletal: No: Muscle Pain, Muscle Weakness Extremities: No: Cool, Cyanosis Edema: No Peripheral Pulses WNL: Yes Integumentary: No: Incision, Jaundice, Venous Stasis Changes Neurological: Yes: Alert, Oriented Psychiatric: Yes: Alert, Oriented Labs: CBC, BMP 05/28/18 11:30 05/28/18 11:30 Imaging - Results Cat Scan: Report Reviewed, Image Reviewed (partial SBO pattern) Problem List - Problems (1) Partial small bowel obstruction Assessment/Plan: 53yo female MMP with partial SBO seen on scan likely chronic related to adhesions after abdominial/ pelvic procedure. CT seem to demonstrated an anterior cluster of adhesive but patent small intestines. No indication for acute surgical intervention at this time. Would conisider if not improving. Advance diet as tolerated Cautioned to avoid certain undigestable foods will follow Thank you for the opportunity to participate in the care of this patient. Code(s): K56.600 - PARTIAL INTESTINAL OBSTRUCTION, UNSPECIFIED TO CAUSE (2) GERD (gastroesophageal reflux disease) Code(s): K21.9 - GASTRO-ESOPHAGEAL REFLUX DISEASE WITHOUT ESOPHAGITIS Qualifiers: Esophagitis presence: without esophagitis Qualified Code(s): K21.9 - Gastro -esophageal reflux disease without esophagitis (3) Obesity (BMI 30-39.9) Code(s): E66.9 - OBESITY, UNSPECIFIED (4) Osteoarthritis Code(s): M19.90 - UNSPECIFIED OSTEOARTHRITIS, UNSPECIFIED SITE Qualifiers: Osteoarthritis location: multiple joints Osteoarthritis type: primary Qualified Code(s): M15.0 - Primary generalized (osteo)arthritis
[2018-05-28] MEDS: GABAPENTIN 300 MG CAPSULE (FP) PO SCH (21:46)
[2018-05-28] MEDS: HEPARIN NA (PORCINE) 5,000 UNITS/ML 1ML VIAL SQ SCH (21:46)
[2018-05-28] MEDS: MONTELUKAST NA 10 MG TABLET PO SCH (21:46)
[2018-05-29] MEDS: MORPHINE SULFATE 2 MG/ML VIAL IVPUSH PRN ×3 (02:33→18:52)
[2018-05-29] MEDS: DEXTROSE 5%-0.45% SALINE 1,000 ML IV SCH ×3 (05:48→22:00)
[2018-05-29 06:56] LABS: BASO % 0.5 % (0-2.0); EOS % 1.2 % (0-4.5); HEMATOCRIT 39.6 % (32.4-45.2); LYMPH % 25.4 % (8-40); MCHC 32.8 g/dl (32.0-36.0); MEAN CELL VOLUME 91.3 fl (80-96); MEAN PLT VOLUME 8.5 fl (7.5-11.1); NEUT % 63.9 % (42.8-82.8); PLATELET COUNT 225 K/MM3 (134-434); RBC 4.34 M/mm3 (3.60-5.2); RDW 14.4 % (11.6-15.6); WHITE BLOOD COUNT 5.4 K/mm3 (4.0-10.0)
[2018-05-29 07:22] LABS: POTASSIUM 4.1 mmol/L (3.5-5.1)
[2018-05-29] MEDS ORDERED: FLU VACCINE QUAD 60 MCG/0.5 ML (MDV 18-19) IM ONE (09:00)
[2018-05-29 09:21] LABS: ALBUMIN 3.6 g/dl (3.4-5.0); ANION GAP 10 MMOL/L (8-16); BLOOD UREA NITROGEN 11 mg/dL (7-18); CHLORIDE 104 mmol/L (98-107); CO2 24 mmol/L (21-32); GLUCOSE,RANDOM 111 mg/dL (74-106); SODIUM 138 mmol/L (136-145)
[2018-05-29 09:24] LABS: ALK PHOS 78 U/L (45-117); BILIRUBIN,TOTAL 0.6 mg/dL (0.2-1); CREATININE 0.8 mg/dL (0.55-1.3); SGOT/AST 19 U/L (15-37); SGPT/ALT 25 U/L (13-61)
[2018-05-29] MEDS ORDERED: cefTRIAXone SODIUM 1 GM VIAL ONE (09:27)
[2018-05-29] MEDS ORDERED: DEXTROSE 5%-WATER - 50 ML IVPB ONE (09:27)
--- NOTE | 2018-05-29 09:48 | CON.GI ---
Consult Consult Specialty:: GI - History of Present Illness History of Present Illness: 53 y/o F with PMH of narrowing in the terminal ileum by cat scan, December 2017, s/ p colonoscopy with terminal ileum ulcers pathology was inconclusive for Crohns disease,was admitted because of severe abdominal pain. Patient repeat catscan in the ED revealed partial SBO with surgical clips. She had a consultation at IBD clinic at [facility] for second opinion. The diagnosis at that time was ileitis possibly infectious in origin. This morning she continued to have abdominal pain, - Past Medical History Gastrointestinal: Yes: GERD, Other (terminal ileitis ) Additional Medical History: obesity - Past Surgical History Past Surgical History: Yes: Hysterectomy - Alcohol/Substance Use Hx Alcohol Use: No - Smoking History Smoking history: Never smoked Have you smoked in the past 12 months: No Aproximately how many cigarettes per day: 0 If you are a former smoker, when did you quit?: 2004 Home Medications - Allergies Allergies/Adverse Reactions: Allergies Allergy/AdvReac Type Severity Reaction Status Date / Time hydromorphone HCl Allergy Severe "SWELLING Verified 01/07/18 10:22 [From Dilaudid] OF FACE,HANDS,FEET" tramadol HCl [From Ultram] Allergy Severe "SWELLING Verified 01/07/18 10:40 OF FACE,HANDS,FEET" oxycodone HCl AdvReac Severe "ITCHY" Verified 01/07/18 10:40 [From OxyContin] morphine AdvReac Intermediate "VOMITING" Verified 01/07/18 10:40 acetaminophen [From Percocet] AdvReac "SHAKY Verified 01/07/18 10:40 STOMACH" MED FOR NAUSEA-NAME UNKNOWN Allergy Severe TONGUE Uncoded 01/07/18 10:40 SWELLING - Home Medications Home Medications: Ambulatory Orders Montelukast Na [Singulair -] 10 mg PO PRN PRN 06/25/14 Amlodipine Besylate [Norvasc -] 5 mg PO DAILY 05/22/17 Ascorbate Calcium [Vitamin C] 500 mg PO ONCE 05/22/17 Cetirizine HCl [Zyrtec -] 10 mg PO DAILY PRN 05/22/17 Famotidine [Pepcid] 40 mg PO HS 09/17/17 Omeprazole 40 mg PO HS 09/17/17 Albuterol Sulfate [Proair Hfa] 8.5 gm IH DAILY PRN 12/23/17 Cyclobenzaprine HCl [Flexeril 10 mg] 10 mg PO BID PRN 12/23/17 Gabapentin [Neurontin] 600 mg PO HS 12/23/17 Mometasone/Formoterol [Dulera 200 Mcg/5 Mcg Inhaler] 2 inh IH BID PRN 12/23/17 Physical Exam-GI Vital Signs: Vital Signs Temperature 98.4 F 05/29/18 06:00 Pulse Rate 64 05/29/18 06:00 Respiratory Rate 20 05/29/18 06:00 Blood Pressure 136/91 05/29/18 06:00 O2 Sat by Pulse Oximetry (%) 97 05/28/18 21:00 Constitutional: Yes: Well Nourished Eyes: Yes: Conjunctiva Clear HENT: Yes: Atraumatic Neck: Yes: Supple Cardiovascular: Yes: Regular Rate and Rhythm Respiratory: Yes: CTA Bilaterally ...Palpate: Yes: Soft, Tenderness (diffuse). No: Firm/Rigid, Guarding, Hepatomegaly, Mass, Pulsatile Mass, Splenomegaly Labs: CBC, BMP 05/29/18 06:30 05/29/18 06:30 Current Medications Generic Name Dose Route Start Last Admin Trade Name Freq PRN Reason Stop Dose Admin Albuterol Sulfate 1 puff 05/28/18 17:57 Ventolin Hfa Inhaler - IH Q6H PRN SHORTNESS OF BREATH Amlodipine Besylate 5 mg 05/29/18 10:00 Norvasc - PO DAILY [facility] Diphenhydramine HCl 25 mg 05/28/18 23:24 Benadryl - PO Q6H PRN FOR ITCHING Gabapentin 600 mg 05/28/18 22:00 05/28/18 21:46 Neurontin - PO 600 mg HS [facility] Administration Heparin Sodium (Porcine) 5,000 unit 05/28/18 22:00 05/28/18 21:46 Heparin - SQ Not Given BID [facility] Dextrose/Sodium Chloride 1,000 mls @ 75 mls/hr 05/28/18 18:00 05/29/18 05:48 D5-1/2ns - IV 75 mls/hr ASDIR [facility] Administration Ceftriaxone Sodium 1 gm/ 50 mls @ 100 mls/hr 05/29/18 10:00 Dextrose IVPB DAILY [facility] Protocol Montelukast Sodium 10 mg 05/28/18 22:00 05/28/18 21:46 Singulair - PO 10 mg HS [facility] Administration Morphine Sulfate 2 mg 05/28/18 20:16 05/29/18 02:33 Morphine Sulfate IVPUSH 2 mg Q6H PRN Administration PAIN LEVEL 4 - 6 Non-Formulary Medication 2 inh 05/28/18 17:57 Mometasone/Formoterol [Dulera 200 Mcg/5 Mcg Inhaler] IH BID PRN ASTHMA Ondansetron HCl 4 mg 05/28/18 20:17 Zofran Injection IVPUSH Q6H PRN NAUSEA AND/OR VOMITING Pantoprazole Sodium 40 mg 05/29/18 10:00 Protonix - PO DAILY [facility] CBCD WBC 5.4 K/mm3 (4.0-10.0) 05/29/18 06:30 RBC 4.34 M/mm3 (3.60-5.2) 05/29/18 06:30 Hgb 13.0 GM/dL (10.7-15.3) 05/29/18 06:30 Hct 39.6 % (32.4-45.2) 05/29/18 06:30 MCV 91.3 fl (80-96) 05/29/18 06:30 MCHC 32.8 g/dl (32.0-36.0) 05/29/18 06:30 RDW 14.4 % (11.6-15.6) 05/29/18 06:30 Plt Count 225 K/MM3 (134-434) 05/29/18 06:30 MPV 8.5 fl (7.5-11.1) 05/29/18 06:30 CMP Sodium 138 mmol/L (136-145) 05/29/18 06:30 Potassium 4.1 mmol/L (3.5-5.1) 05/29/18 06:30 Chloride 104 mmol/L (98-107) 05/29/18 06:30 Carbon Dioxide 24 mmol/L (21-32) 05/29/18 06:30 Anion Gap 10 MMOL/L (8-16) 05/29/18 06:30 BUN 11 mg/dL (7-18) 05/29/18 06:30 Creatinine 0.8 mg/dL (0.55-1.3) 05/29/18 06:30 Creat Clearance w eGFR > 60 (>60) 05/29/18 06:30 Calcium 9.0 mg/dL (8.5-10.1) 05/29/18 06:30 Total Bilirubin 0.6 mg/dL (0.2-1) 05/29/18 06:30 AST 19 U/L (15-37) 05/29/18 06:30 ALT 25 U/L (13-61) 05/29/18 06:30 Alkaline Phosphatase 78 U/L (45-117) 05/29/18 06:30 Total Protein 7.0 g/dl (6.4-8.2) 05/29/18 06:30 Albumin 3.6 g/dl (3.4-5.0) 05/29/18 06:30 Problem List - Problems (1) Idiopathic diffuse ulcerative nongranulomatous enteritis Assessment/Plan: associated with elevted ESR and CRP R> IV solumedrol IV antibiotics FUA in am if clinically improved will advance to low fiber lactose free patient was made aware of her clinical condition Code(s): K90.1 - TROPICAL SPRUE
[2018-05-29] MEDS ORDERED: amLODIPine BESYLATE 5 MG TABLET (FP) PO SCH (10:00)
[2018-05-29] MEDS: CEFTRIAXONE 1 GM in DEXTROSE 5%-WATER - 50 ML IVPB SCH (10:18)
[2018-05-29] MEDS: HEPARIN NA (PORCINE) 5,000 UNITS/ML 1ML VIAL SQ SCH ×2 (10:22→21:48)
[2018-05-29] MEDS ORDERED: methylPREDNISolone NA SUCC 1000 MG/8 ML VIAL IVPB ONE (10:30)
[2018-05-29 11:43] VITALS: BMI 38.7
[2018-05-29] MEDS: PANTOPRAZOLE 40 MG TABLET (FP) PO SCH (17:13)
--- NOTE | 2018-05-29 21:02 | PN ---
Progress Note, Physician History of Present Illness: Pt still having significant pain wc is generalized - Current Medication List Current Medications: Active Medications Albuterol Sulfate (Ventolin Hfa Inhaler -) 1 puff IH Q6H PRN PRN Reason: SHORTNESS OF BREATH Amlodipine Besylate (Norvasc -) 5 mg PO DAILY [facility] Last Admin: 05/29/18 10:19 Dose: 5 mg Diphenhydramine HCl (Benadryl -) 25 mg PO Q6H PRN PRN Reason: FOR ITCHING Gabapentin (Neurontin -) 600 mg PO HS [facility] Last Admin: 05/28/18 21:46 Dose: 600 mg Heparin Sodium (Porcine) (Heparin -) 5,000 unit SQ BID [facility] Last Admin: 05/29/18 10:22 Dose: 5,000 unit Dextrose/Sodium Chloride (D5-1/2ns -) 1,000 mls @ 75 mls/hr IV ASDIR [facility] Last Admin: 05/29/18 18:54 Dose: Not Given Ceftriaxone Sodium 1 gm/ (Dextrose) 50 mls @ 100 mls/hr IVPB DAILY [facility]; Protocol Last Admin: 05/29/18 10:18 Dose: 100 mls/hr Methylprednisolone Sodium Succinate (Solu-Medrol -) 40 mg IVPB DAILY [facility] Montelukast Sodium (Singulair -) 10 mg PO HS [facility] Last Admin: 05/28/18 21:46 Dose: 10 mg Morphine Sulfate (Morphine Sulfate) 2 mg IVPUSH Q6H PRN PRN Reason: PAIN LEVEL 4 - 6 Last Admin: 05/29/18 18:52 Dose: 2 mg Non-Formulary Medication (Mometasone/Formoterol [Dulera 200 Mcg/5 Mcg Inhaler]) 2 inh IH BID PRN PRN Reason: ASTHMA Ondansetron HCl (Zofran Injection) 4 mg IVPUSH Q6H PRN PRN Reason: NAUSEA AND/OR VOMITING Pantoprazole Sodium (Protonix -) 40 mg PO DAILY [facility] Last Admin: 05/29/18 17:13 Dose: Not Given - Objective Vital Signs: Vital Signs Temperature 98.3 F 05/29/18 18:00 Pulse Rate 60 05/29/18 18:00 Respiratory Rate 20 05/29/18 18:00 Blood Pressure 113/71 05/29/18 18:00 O2 Sat by Pulse Oximetry (%) 97 05/29/18 09:00 Constitutional: Yes: Well Nourished Neck: Yes: WNL, Supple Cardiovascular: Yes: WNL, Regular Rate and Rhythm Respiratory: Yes: WNL, Regular, CTA Bilaterally Gastrointestinal: Yes: Soft, Abdomen, Obese, Other ((+) generalized tenderness on palpation but no guarding/rebound) Labs: CBC, BMP 05/29/18 06:30 05/29/18 06:30 Problem List - Problems (1) Partial small bowel obstruction Assessment/Plan: Cont NPO Cont IVF Check FUA in am Code(s): K56.600 - PARTIAL INTESTINAL OBSTRUCTION, UNSPECIFIED TO CAUSE (2) Idiopathic diffuse ulcerative nongranulomatous enteritis Assessment/Plan: Cont IV ceftriaxone/IV solumedrol Code(s): K90.1 - TROPICAL SPRUE (3) GERD (gastroesophageal reflux disease) Assessment/Plan: IV protonix Code(s): K21.9 - GASTRO-ESOPHAGEAL REFLUX DISEASE WITHOUT ESOPHAGITIS Qualifiers: Esophagitis presence: without esophagitis Qualified Code(s): K21.9 - Gastro -esophageal reflux disease without esophagitis (4) Obesity (BMI 30-39.9) Code(s): E66.9 - OBESITY, UNSPECIFIED
[2018-05-29] MEDS: GABAPENTIN 300 MG CAPSULE (FP) PO SCH (21:48)
[2018-05-29] MEDS: MONTELUKAST NA 10 MG TABLET PO SCH (21:49)
[2018-05-30] MEDS: MORPHINE SULFATE 2 MG/ML VIAL IVPUSH PRN ×3 (01:19→21:24)
--- NOTE | 2018-05-30 03:27 | PN ---
Progress Note, Physician Chief Complaint: partial sbo History of Present Illness: 53 yo female PMH obesity, GERD, PUD, osteoarthritis presented to ED with severe right lower abdominal pain, nausea no vomiting. nausea has impoved. she has been hemodynamically stable. - Current Medication List Current Medications: Active Medications Albuterol Sulfate (Ventolin Hfa Inhaler -) 1 puff IH Q6H PRN PRN Reason: SHORTNESS OF BREATH Diphenhydramine HCl (Benadryl -) 25 mg PO Q6H PRN PRN Reason: FOR ITCHING Heparin Sodium (Porcine) (Heparin -) 5,000 unit SQ BID [facility] Last Admin: 05/29/18 21:48 Dose: 5,000 unit Dextrose/Sodium Chloride (D5-1/2ns -) 1,000 mls @ 75 mls/hr IV ASDIR [facility] Last Admin: 05/29/18 22:00 Dose: 75 mls/hr Ceftriaxone Sodium 1 gm/ (Dextrose) 50 mls @ 100 mls/hr IVPB DAILY [facility]; Protocol Last Admin: 05/29/18 10:18 Dose: 100 mls/hr Methylprednisolone Sodium Succinate (Solu-Medrol -) 40 mg IVPB DAILY [facility] Montelukast Sodium (Singulair -) 10 mg PO HS [facility] Last Admin: 05/29/18 21:49 Dose: 10 mg Morphine Sulfate (Morphine Sulfate) 2 mg IVPUSH Q6H PRN PRN Reason: PAIN LEVEL 4 - 6 Last Admin: 05/30/18 01:19 Dose: 2 mg Non-Formulary Medication (Mometasone/Formoterol [Dulera 200 Mcg/5 Mcg Inhaler]) 2 inh IH BID PRN PRN Reason: ASTHMA Ondansetron HCl (Zofran Injection) 4 mg IVPUSH Q6H PRN PRN Reason: NAUSEA AND/OR VOMITING Pantoprazole Sodium (Protonix -) 40 mg PO DAILY [facility] Last Admin: 05/29/18 17:13 Dose: Not Given - Objective Vital Signs: Vital Signs Temperature 98.5 F 05/29/18 22:00 Pulse Rate 60 05/29/18 22:00 Respiratory Rate 20 05/29/18 22:00 Blood Pressure 112/51 05/29/18 22:00 O2 Sat by Pulse Oximetry (%) 97 05/29/18 21:00 Vital Signs Period Temp Pulse Resp BP Sys/Galvin Pulse Ox Last 24 Hr 97.9 F-98.5 F 60-75 18-20 112-136/51-91 97-97 Intake & Output 05/29/18 05/29/18 05/30/18 15:59 23:59 07:59 Intake Total 20 Balance 20 Weight 226 lb Intake: Oral 20 Other: Voiding Method Toilet Toilet # Unmeasured Voids Void 2 2 Bowel Movement No Height 5 ft 4 in Body Mass Index (BMI) 38.7 Constitutional: Yes: Well Nourished, No Distress, Calm, Obese Eyes: Yes: Conjunctiva Clear, EOM Intact HENT: Yes: Atraumatic, Normocephalic Neck: Yes: Supple, Trachea Midline Cardiovascular: Yes: Regular Rate and Rhythm, S1, S2 Respiratory: Yes: Regular, CTA Bilaterally Gastrointestinal: Yes: Normal Bowel Sounds, Soft, Abdomen, Obese. No: Distention, Tenderness, Tenderness, Epigastrium, Tenderness, Rebound ...Rectal Exam: Yes: Deferred Genitourinary: No: CVA Tenderness - Left, CVA Tenderness - Right Extremities: No: Cool, Cyanosis Edema: No Peripheral Pulses WNL: Yes Peripheral Pulses: Left Radial: 2+, Right Radial: 2+, Left Doralis Pedis: 2+, Right Dorsalis Pedis: 2+ Integumentary: No: Bruising, Jaundice Neurological: Yes: Alert, Oriented Psychiatric: Yes: Alert, Oriented Labs: CBC, BMP 05/29/18 06:30 05/29/18 06:30 Problem List - Problems (1) Partial small bowel obstruction Assessment/Plan: 53yo female MMP with partial SBO seen on scan likely chronic related to adhesions after abdominial/ pelvic procedure. CT seem to demonstrated an anterior cluster of adhesive but patent small intestines. No indication for acute surgical intervention at this time. AXR X2 are non- obstructive showing colonic air. Advance diet as tolerated Cautioned to avoid certain undigestable foods will follow Thank you for the opportunity to participate in the care of this patient. Code(s): K56.600 - PARTIAL INTESTINAL OBSTRUCTION, UNSPECIFIED TO CAUSE (2) GERD (gastroesophageal reflux disease) Code(s): K21.9 - GASTRO-ESOPHAGEAL REFLUX DISEASE WITHOUT ESOPHAGITIS Qualifiers: Esophagitis presence: without esophagitis Qualified Code(s): K21.9 - Gastro -esophageal reflux disease without esophagitis (3) Obesity (BMI 30-39.9) Code(s): E66.9 - OBESITY, UNSPECIFIED (4) Osteoarthritis Code(s): M19.90 - UNSPECIFIED OSTEOARTHRITIS, UNSPECIFIED SITE Qualifiers: Osteoarthritis location: multiple joints Osteoarthritis type: primary Qualified Code(s): M15.0 - Primary generalized (osteo)arthritis
[2018-05-30 07:55] LABS: BASO % 0.4 % (0-2.0); EOS % 2.6 % (0-4.5); HEMATOCRIT 37.6 % (32.4-45.2); HEMOGLOBIN 12.5 GM/dL (10.7-15.3); LYMPH % 47.4 % (8-40); MCH 30.2 pg (25.7-33.7); MCHC 33.1 g/dl (32.0-36.0); MEAN CELL VOLUME 91.3 fl (80-96); MEAN PLT VOLUME 8.7 fl (7.5-11.1); MONO % 12.9 % (3.8-10.2); NEUT % 36.7 % (42.8-82.8); PLATELET COUNT 208 K/MM3 (134-434); RBC 4.12 M/mm3 (3.60-5.2); RDW 14.3 % (11.6-15.6); WHITE BLOOD COUNT 3.3 K/mm3 (4.0-10.0)
[2018-05-30 08:57] LABS: ALBUMIN 3.5 g/dl (3.4-5.0); ANION GAP 7 MMOL/L (8-16); BILIRUBIN,TOTAL 0.5 mg/dL (0.2-1); BLOOD UREA NITROGEN 8 mg/dL (7-18); CHLORIDE 105 mmol/L (98-107); CO2 28 mmol/L (21-32); CREATININE 0.7 mg/dL (0.55-1.3); GLUCOSE,RANDOM 99 mg/dL (74-106); SGOT/AST 17 U/L (15-37); SGPT/ALT 27 U/L (13-61); SODIUM 140 mmol/L (136-145)
[2018-05-30 08:58] LABS: ALK PHOS 71 U/L (45-117); TOT PROT 6.6 g/dl (6.4-8.2)
[2018-05-30] MEDS ORDERED: cefTRIAXone SODIUM 1 GM VIAL ONE (10:30)
[2018-05-30] MEDS ORDERED: DEXTROSE 5%-WATER - 50 ML IVPB ONE (10:30)
[2018-05-30] MEDS: CEFTRIAXONE 1 GM in DEXTROSE 5%-WATER - 50 ML IVPB SCH (10:35)
[2018-05-30] MEDS: PANTOPRAZOLE 40 MG TABLET (FP) PO SCH (10:35)
[2018-05-30] MEDS: HEPARIN NA (PORCINE) 5,000 UNITS/ML 1ML VIAL SQ SCH ×2 (10:35→21:24)
[2018-05-30] MEDS: methylPREDNISolone NA SUCC 40 MG/1 ML VIAL IVPB SCH (10:35)
[2018-05-30] MEDS: DEXTROSE 5%-0.45% SALINE 1,000 ML IV SCH ×3 (14:01→23:09)
[2018-05-30] MEDS: MONTELUKAST NA 10 MG TABLET PO SCH (21:24)
[2018-05-30] MEDS: diphenhydrAMINE HCL 25 MG CAPSULE (FP) PO PRN (23:08)
--- NOTE | 2018-05-31 02:38 | PN ---
Progress Note, Physician History of Present Illness: Pt seen and examined on 05/30/18 Pt still having abdominal pain - Current Medication List Current Medications: Active Medications Albuterol Sulfate (Ventolin Hfa Inhaler -) 1 puff IH Q6H PRN PRN Reason: SHORTNESS OF BREATH Diphenhydramine HCl (Benadryl -) 25 mg PO Q6H PRN PRN Reason: FOR ITCHING Last Admin: 05/30/18 23:08 Dose: 25 mg Heparin Sodium (Porcine) (Heparin -) 5,000 unit SQ BID LOBO Last Admin: 05/30/18 21:24 Dose: 5,000 unit Ceftriaxone Sodium 1 gm/ (Dextrose) 50 mls @ 100 mls/hr IVPB DAILY [facility]; Protocol Last Admin: 05/30/18 10:35 Dose: 100 mls/hr Dextrose/Sodium Chloride (D5-1/2ns -) 1,000 mls @ 125 mls/hr IV ASDIR [facility] Last Admin: 05/30/18 23:09 Dose: 125 mls/hr Methylprednisolone Sodium Succinate (Solu-Medrol -) 40 mg IVPB DAILY [facility] Last Admin: 05/30/18 10:35 Dose: 40 mg Montelukast Sodium (Singulair -) 10 mg PO HS [facility] Last Admin: 05/30/18 21:24 Dose: 10 mg Morphine Sulfate (Morphine Sulfate) 2 mg IVPUSH Q6H PRN PRN Reason: PAIN LEVEL 4 - 6 Last Admin: 05/30/18 21:24 Dose: 2 mg Non-Formulary Medication (Mometasone/Formoterol [Dulera 200 Mcg/5 Mcg Inhaler]) 2 inh IH BID PRN PRN Reason: ASTHMA Ondansetron HCl (Zofran Injection) 4 mg IVPUSH Q6H PRN PRN Reason: NAUSEA AND/OR VOMITING Pantoprazole Sodium (Protonix -) 40 mg PO DAILY [facility] Last Admin: 05/30/18 10:35 Dose: 40 mg - Objective Vital Signs: Vital Signs Temperature 98.2 F 05/30/18 18:00 Pulse Rate 65 05/30/18 22:00 Respiratory Rate 20 05/30/18 22:00 Blood Pressure 118/68 05/30/18 22:00 O2 Sat by Pulse Oximetry (%) 95 05/30/18 21:00 Neck: Yes: WNL, Supple Cardiovascular: Yes: WNL, Regular Rate and Rhythm Respiratory: Yes: WNL, Regular, CTA Bilaterally Gastrointestinal: Yes: Soft, Abdomen, Obese, Other (Generaized tenderness on palpation no guarding/rebound) Labs: CBC, BMP 05/30/18 07:00 05/30/18 07:00 Problem List - Problems (1) Partial small bowel obstruction Assessment/Plan: Advance diet to clear liquids and monitor Cont IVF Check FUA in am Code(s): K56.600 - PARTIAL INTESTINAL OBSTRUCTION, UNSPECIFIED TO CAUSE (2) Idiopathic diffuse ulcerative nongranulomatous enteritis Assessment/Plan: Cont IV ceftriaxone/IV solumedrol Code(s): K90.1 - TROPICAL SPRUE (3) GERD (gastroesophageal reflux disease) Assessment/Plan: IV protonix Code(s): K21.9 - GASTRO-ESOPHAGEAL REFLUX DISEASE WITHOUT ESOPHAGITIS Qualifiers: Esophagitis presence: without esophagitis Qualified Code(s): K21.9 - Gastro -esophageal reflux disease without esophagitis (4) Obesity (BMI 30-39.9) Code(s): E66.9 - OBESITY, UNSPECIFIED
[2018-05-31 08:40] LABS: BASO % 0.4 % (0-2.0); EOS % 0.2 % (0-4.5); HEMATOCRIT 37.9 % (32.4-45.2); HEMOGLOBIN 12.7 GM/dL (10.7-15.3); LYMPH % 25.2 % (8-40); MCH 30.7 pg (25.7-33.7); MCHC 33.5 g/dl (32.0-36.0); MEAN CELL VOLUME 91.5 fl (80-96); MONO % 10.6 % (3.8-10.2); NEUT % 63.6 % (42.8-82.8); PLATELET COUNT 202 K/MM3 (134-434); RBC 4.15 M/mm3 (3.60-5.2); RDW 14.4 % (11.6-15.6); WHITE BLOOD COUNT 5.6 K/mm3 (4.0-10.0)
[2018-05-31 08:42] LABS: ALBUMIN 3.5 g/dl (3.4-5.0); ALK PHOS 65 U/L (45-117); ANION GAP 13 MMOL/L (8-16); BILIRUBIN,TOTAL 0.3 mg/dL (0.2-1); BLOOD UREA NITROGEN 7 mg/dL (7-18); CALCIUM 9.6 mg/dL (8.5-10.1); CHLORIDE 110 mmol/L (98-107); CO2 18 mmol/L (21-32); CREATININE 0.6 mg/dL (0.55-1.3); GLUCOSE,RANDOM 120 mg/dL (74-106); POTASSIUM 4.1 mmol/L (3.5-5.1); SGOT/AST 13 U/L (15-37); SGPT/ALT 26 U/L (13-61); SODIUM 141 mmol/L (136-145); TOT PROT 6.8 g/dl (6.4-8.2)
[2018-05-31] MEDS ORDERED: cefTRIAXone SODIUM 1 GM VIAL ONE (10:16)
[2018-05-31] MEDS ORDERED: DEXTROSE 5%-WATER - 50 ML IVPB ONE (10:17)
[2018-05-31] MEDS: CEFTRIAXONE 1 GM in DEXTROSE 5%-WATER - 50 ML IVPB SCH (10:35)
[2018-05-31] MEDS: PANTOPRAZOLE 40 MG TABLET (FP) PO SCH (10:36)
[2018-05-31] MEDS: HEPARIN NA (PORCINE) 5,000 UNITS/ML 1ML VIAL SQ SCH ×2 (10:36→21:41)
[2018-05-31] MEDS: methylPREDNISolone NA SUCC 40 MG/1 ML VIAL IVPB SCH (10:36)
[2018-05-31] MEDS: DEXTROSE 5%-0.45% SALINE 1,000 ML IV SCH ×2 (10:36→21:41)
--- NOTE | 2018-05-31 16:56 | PN ---
GI Progress Note Subjective: patient seen 05/30 rlq pain, is less 5/10. Today was informed by the nurse that the patient is pain free and to try solid food - Objective Vital Signs: Vital Signs Temperature 98.2 F 05/31/18 14:15 Pulse Rate 70 05/31/18 14:15 Respiratory Rate 05/31/18 14:15 Blood Pressure 128/76 05/31/18 14:15 O2 Sat by Pulse Oximetry (%) 95 05/30/18 21:00 Constitutional: Well Nourished Eyes: Yes: Conjunctiva Clear HENT: Yes: Atraumatic, Tonsillar Exudate Cardiovascular: Yes: Regular Rate and Rhythm Respiratory: Yes: CTA Bilaterally Gastrointestinal Inspection: Yes: Distention ...Auscultate: Yes: Normoactive Bowel Sounds ...Palpate: Yes: Soft, Tenderness (--mild RLQ). No: Firm/Rigid, Guarding, Hepatomegaly, Splenomegaly Labs: CBC, BMP 05/31/18 07:33 05/31/18 07:33 Problem List - Problems (1) Idiopathic diffuse ulcerative nongranulomatous enteritis Assessment/Plan: R>switch wto Prednisone 60mg po Flagyl 250mg tid if diet tolerated and pain is negligible okay to discharge in 24 hours Code(s): K90.1 - TROPICAL SPRUE
[2018-05-31] MEDS: MONTELUKAST NA 10 MG TABLET PO SCH (21:41)
[2018-05-31] MEDS: metroNIDAZOLE 250 MG TABLET PO SCH (21:41)
[2018-05-31] MEDS: diphenhydrAMINE HCL 25 MG CAPSULE (FP) PO PRN (21:50)
--- NOTE | 2018-05-31 22:23 | PN ---
Progress Note, Physician - Current Medication List Current Medications: Active Medications Albuterol Sulfate (Ventolin Hfa Inhaler -) 1 puff IH Q6H PRN PRN Reason: SHORTNESS OF BREATH Diphenhydramine HCl (Benadryl -) 25 mg PO Q6H PRN PRN Reason: FOR ITCHING Last Admin: 05/31/18 21:50 Dose: 25 mg Heparin Sodium (Porcine) (Heparin -) 5,000 unit SQ BID [facility] Last Admin: 05/31/18 21:41 Dose: 5,000 unit Dextrose/Sodium Chloride (D5-1/2ns -) 1,000 mls @ 125 mls/hr IV ASDIR [facility] Last Admin: 05/31/18 21:41 Dose: 125 mls/hr Metronidazole (Flagyl -) 250 mg PO TID [facility] Last Admin: 05/31/18 21:41 Dose: 250 mg Montelukast Sodium (Singulair -) 10 mg PO HS [facility] Last Admin: 05/31/18 21:41 Dose: 10 mg Ondansetron HCl (Zofran Injection) 4 mg IVPUSH Q6H PRN PRN Reason: NAUSEA AND/OR VOMITING Pantoprazole Sodium (Protonix -) 40 mg PO DAILY [facility] Last Admin: 05/31/18 10:36 Dose: 40 mg Prednisone (Deltasone -) 60 mg PO DAILY [facility] - Objective Vital Signs: Vital Signs Temperature 97.6 F 05/31/18 18:00 Pulse Rate 70 05/31/18 18:00 Respiratory Rate 20 05/31/18 18:00 Blood Pressure 129/94 05/31/18 18:00 O2 Sat by Pulse Oximetry (%) 95 05/30/18 21:00 Labs: CBC, BMP 05/31/18 07:33 05/31/18 07:33 Problem List - Problems (1) Partial small bowel obstruction Code(s): K56.600 - PARTIAL INTESTINAL OBSTRUCTION, UNSPECIFIED TO CAUSE (2) Idiopathic diffuse ulcerative nongranulomatous enteritis Code(s): K90.1 - TROPICAL SPRUE (3) GERD (gastroesophageal reflux disease) Code(s): K21.9 - GASTRO-ESOPHAGEAL REFLUX DISEASE WITHOUT ESOPHAGITIS Qualifiers: Esophagitis presence: without esophagitis Qualified Code(s): K21.9 - Gastro -esophageal reflux disease without esophagitis (4) Obesity (BMI 30-39.9) Code(s): E66.9 - OBESITY, UNSPECIFIED
[2018-06-01] MEDS: DEXTROSE 5%-0.45% SALINE 1,000 ML IV SCH (06:40)
[2018-06-01] MEDS: metroNIDAZOLE 250 MG TABLET PO SCH ×2 (06:41→13:06)
[2018-06-01] MEDS ORDERED: PT OWN MED DRAWER 7, Y5N ONE (09:33)
[2018-06-01] MEDS: PANTOPRAZOLE 40 MG TABLET (FP) PO SCH (09:42)
[2018-06-01] MEDS: HEPARIN NA (PORCINE) 5,000 UNITS/ML 1ML VIAL SQ SCH (09:43)
[2018-06-01] MEDS ORDERED: predniSONE 20 MG TABLET (UD) PO SCH (10:00)
[2018-06-01 10:32] VITALS: BP 102/62; PULSE 76; TEMP 97.7
--- NOTE | 2018-06-01 10:58 | PN ---
Progress Note, Physician - Current Medication List Current Medications: Active Medications Albuterol Sulfate (Ventolin Hfa Inhaler -) 1 puff IH Q6H PRN PRN Reason: SHORTNESS OF BREATH Diphenhydramine HCl (Benadryl -) 25 mg PO Q6H PRN PRN Reason: FOR ITCHING Last Admin: 05/31/18 21:50 Dose: 25 mg Heparin Sodium (Porcine) (Heparin -) 5,000 unit SQ BID [facility] Last Admin: 06/01/18 09:43 Dose: 5,000 unit Dextrose/Sodium Chloride (D5-1/2ns -) 1,000 mls @ 125 mls/hr IV ASDIR [facility] Last Admin: 06/01/18 06:40 Dose: 125 mls/hr Metronidazole (Flagyl -) 250 mg PO TID [facility] Last Admin: 06/01/18 06:41 Dose: 250 mg Montelukast Sodium (Singulair -) 10 mg PO HS [facility] Last Admin: 05/31/18 21:41 Dose: 10 mg Ondansetron HCl (Zofran Injection) 4 mg IVPUSH Q6H PRN PRN Reason: NAUSEA AND/OR VOMITING Pantoprazole Sodium (Protonix -) 40 mg PO DAILY [facility] Last Admin: 06/01/18 09:42 Dose: 40 mg Prednisone (Deltasone -) 60 mg PO DAILY [facility] Last Admin: 06/01/18 09:43 Dose: 60 mg - Objective Vital Signs: Vital Signs Temperature 97.7 F 06/01/18 09:00 Pulse Rate 76 06/01/18 09:00 Respiratory Rate 20 06/01/18 09:00 Blood Pressure 102/62 06/01/18 09:00 O2 Sat by Pulse Oximetry (%) 98 05/31/18 21:00 Labs: CBC, BMP 05/31/18 07:33 05/31/18 07:33 Problem List - Problems (1) Partial small bowel obstruction Code(s): K56.600 - PARTIAL INTESTINAL OBSTRUCTION, UNSPECIFIED TO CAUSE (2) GERD (gastroesophageal reflux disease) Code(s): K21.9 - GASTRO-ESOPHAGEAL REFLUX DISEASE WITHOUT ESOPHAGITIS Qualifiers: Esophagitis presence: without esophagitis Qualified Code(s): K21.9 - Gastro -esophageal reflux disease without esophagitis (3) Obesity (BMI 30-39.9) Code(s): E66.9 - OBESITY, UNSPECIFIED (4) Osteoarthritis Code(s): M19.90 - UNSPECIFIED OSTEOARTHRITIS, UNSPECIFIED SITE Qualifiers: Osteoarthritis location: multiple joints Osteoarthritis type: primary Qualified Code(s): M15.0 - Primary generalized (osteo)arthritis
--- NOTE | 2018-06-01 11:17 | CONSULT ---
Consult Consult Specialty:: Surgery - History of Present Illness Chief Complaint: abdominal pain History of Present Illness: 53 y.o. female known to undersigned for history of moderate to severe small bowel adhesions to the uterus found during a scheduled hysterectomy in 2008? where small bowel resection was done. Had one episode of partial SBO in 2010 managed by NG decompression with complete resolution. Currently admitted for abdominal pain and CT findings of partial SBO. Conservative management was instituted with clinical improvement and patient is passing flatus and tolerating regular diet. C/o lower abdominal soreness. - History Source History Provided By: Patient Limitations to Obtaining History: No Limitations - Past Medical History Gastrointestinal: Yes: GERD, Other (terminal ileitis ) Additional Medical History: obesity - Past Surgical History Past Surgical History: Yes: Hysterectomy - Alcohol/Substance Use Hx Alcohol Use: No - Smoking History Smoking history: Never smoked Have you smoked in the past 12 months: No Aproximately how many cigarettes per day: 0 If you are a former smoker, when did you quit?: 2004 Home Medications - Allergies Allergies/Adverse Reactions: Allergies Allergy/AdvReac Type Severity Reaction Status Date / Time hydromorphone HCl Allergy Severe "SWELLING Verified 01/07/18 10:22 [From Dilaudid] OF FACE,HANDS,FEET" tramadol HCl [From Ultram] Allergy Severe "SWELLING Verified 01/07/18 10:40 OF FACE,HANDS,FEET" oxycodone HCl AdvReac Severe "ITCHY" Verified 01/07/18 10:40 [From OxyContin] morphine AdvReac Intermediate "VOMITING" Verified 01/07/18 10:40 acetaminophen [From Percocet] AdvReac "SHAKY Verified 01/07/18 10:40 STOMACH" MED FOR NAUSEA-NAME UNKNOWN Allergy Severe TONGUE Uncoded 01/07/18 10:40 SWELLING - Home Medications Home Medications: Ambulatory Orders Montelukast Na [Singulair -] 10 mg PO PRN PRN 06/25/14 Amlodipine Besylate [Norvasc -] 5 mg PO DAILY 05/22/17 Ascorbate Calcium [Vitamin C] 500 mg PO ONCE 05/22/17 Cetirizine HCl [Zyrtec -] 10 mg PO DAILY PRN 05/22/17 Famotidine [Pepcid] 40 mg PO HS 09/17/17 Omeprazole 40 mg PO HS 09/17/17 Albuterol Sulfate [Proair Hfa] 8.5 gm IH DAILY PRN 12/23/17 Cyclobenzaprine HCl [Flexeril 10 mg] 10 mg PO BID PRN 12/23/17 Gabapentin [Neurontin] 600 mg PO HS 12/23/17 Mometasone/Formoterol [Dulera 200 Mcg/5 Mcg Inhaler] 2 inh IH BID PRN 12/23/17 Physical Exam Vital Signs: Vital Signs Temperature 97.7 F 06/01/18 09:00 Pulse Rate 76 06/01/18 09:00 Respiratory Rate 20 06/01/18 09:00 Blood Pressure 102/62 06/01/18 09:00 O2 Sat by Pulse Oximetry (%) 98 05/31/18 21:00 Eyes: Yes: Conjunctiva Clear HENT: Yes: Atraumatic, Normocephalic Neck: Yes: Supple Respiratory: Yes: CTA Bilaterally Gastrointestinal: Yes: Normal Bowel Sounds, Soft, Abdomen, Obese, Tenderness, Other (very mild on deep palpation) Labs: CBC, BMP 05/31/18 07:33 05/31/18 07:33 Imaging - Results X-ray: Report Reviewed, Image Reviewed Cat Scan: Report Reviewed, Image Reviewed Problem List - Problems (1) Partial small bowel obstruction Assessment/Plan: Resolved. No surgical intervention necessary at this time. May D/C anytime. F/U as OP. Patient educated about unpredictable nature of SBO and that prompt attention is necessary when condition recurs. Code(s): K56.600 - PARTIAL INTESTINAL OBSTRUCTION, UNSPECIFIED TO CAUSE
== END 2018-06-01 15:10 | disposition home or self-care (01) | DRG 247 ==
LOC: JER 09:20 → JERBED 14:54 → J5S 16:33
PROVIDERS: ADMIT Internal Medicine; ATTEND Internal Medicine
DX: K56.600 Partial intestinal obstruction, unspecified as to cause (principal); I10 Essential (primary) hypertension; J45.909 Unspecified asthma, uncomplicated; M54.5 Low back pain; K63.3 Ulcer of intestine; R73.03 Prediabetes; K21.9 Gastro-esophageal reflux disease without esophagitis; E66.9 Obesity, unspecified; Z68.38 Body mass index [BMI] 38.0-38.9, adult; M19.90 Unspecified osteoarthritis, unspecified site; K90.1 Tropical sprue
CPT/HCPCS: 36415; 74021-TC-FY; 74177-TC; 80053; 81003; 81015; 82150; 82550; 83605; 83690; 84484; 85025; 85651; 86140; 87086; 90688; 93005; 93010; 99283-25; G0008; J0131; J1644

== ENCOUNTER 2019-07-20 19:18 | Emergency (ER) | payer OTHER ==
[2019-07-20 19:32] VITALS: BP 130/80; PULSE 70; TEMP 97.9; BMI 39.9
--- NOTE | 2019-07-20 20:47 | PDOC ---
History of Present Illness - General Chief Complaint: Back Pain Stated Complaint: BACK PAIN Time Seen by Provider: 07/20/19 20:34 - History of Present Illness Initial Comments: 07/20/19 20:47 Patient is a 54-year-old female with past medical history of chronic back pain, UC, Crohn's disease, HTN, SBO, asthma, partial bowel resection, oophorectomy, bilateral knee replacement, right shoulder replacement here with complaints of lower back pain that radiates to her abdomen x3 days. Patient states that she has chronic back issues which is usually achy. States that since June she started to have pain in her right side then shifted to her left side intermittently. Subsequently she saw pain management on 07/16/2019 and was given a shot of Toradol injection. States that she felt fine initially for a few hours but then Sunday evening started having intermittent sharp 10 out of 10 achy pain that radiated to her front bilaterally. Pain is worse with breathing or bending. She took Tylenol at 6 AM this morning states got some relief from the pain however has not taken any pain since and now her pain is severe. She denies any nausea, vomiting, fever, chills, diarrhea. PMD: Dr. Dang PMHX: As above PSOCHX: neg etoh, drug, cig ALL: Percocet, Dilaudid, Ultram, unknown anti-emetic GENERAL/CONSTITUTIONAL: [No fever or chills. No weakness. No weight change.] HEAD, EYES, EARS, NOSE AND THROAT: [No change in vision. No ear pain or discharge. No sore throat.] CARDIOVASCULAR: [No chest pain or shortness of breath.] RESPIRATORY: [No cough, wheezing, or hemoptysis.] GASTROINTESTINAL: [No nausea, vomiting, diarrhea or constipation. No rectal bleeding.] GENITOURINARY: [No dysuria, frequency, or change in urination.] MUSCULOSKELETAL: [(+) joint or muscle swelling or pain. No neck or back pain.] SKIN AND BREASTS: [No rash or easy bruising.] NEUROLOGIC: [No headache, vertigo, loss of consciousness, or loss of sensation.] PSYCHIATRIC: [No depression or anxiety.] ENDOCRINE: [No increased thirst. No abnormal weight change.] HEMATOLOGIC/LYMPHATIC: [No anemia, easy bleeding, or history of blood clots.] ALLERGIC/IMMUNOLOGIC: [No hives or skin allergy. No latex allergy.] GENERAL: [The patient is awake, alert, and fully oriented, in mild distress.] HEAD: [Normal with no signs of trauma.] EYES: [Pupils equal, round and reactive to light, extraocular movements intact, sclera anicteric, conjunctiva clear.] ENT: [Ears normal, nares patent, oropharynx clear without exudates. Moist mucous membranes.] NECK: [Normal range of motion, supple without lymphadenopathy, JVD, or masses.] LUNGS: [Breath sounds equal, clear to auscultation bilaterally. No wheezes, and no crackles.] HEART: [Regular rate and rhythm, normal S1 and S2 without murmur, rub.] ABDOMEN: [Soft, (+) tenderness to the upper abd , normoactive bowel sounds. No guarding, no rebound. No masses.] EXTREMITIES: [Normal range of motion, no edema. No clubbing or cyanosis. No cords, erythema, or tenderness.] NEUROLOGICAL: [Cranial nerves II through XII grossly intact. Normal speech, normal gait.] PSYCH: [Normal mood, normal affect.] SKIN: [Warm, Dry, normal turgor, no rashes or lesions noted.] Past History - Past Medical History Allergies/Adverse Reactions: Allergies Allergy/AdvReac Type Severity Reaction Status Date / Time hydromorphone HCl Allergy Severe "SWELLING Verified 01/07/18 10:22 [From Dilaudid] OF FACE,HANDS,FEET" tramadol HCl [From Ultram] Allergy Severe "SWELLING Verified 01/07/18 10:40 OF FACE,HANDS,FEET" oxycodone HCl AdvReac Severe "ITCHY" Verified 01/07/18 10:40 [From OxyContin] morphine AdvReac Intermediate "VOMITING" Verified 01/07/18 10:40 acetaminophen [From Percocet] AdvReac "SHAKY Verified 01/07/18 10:40 STOMACH" MED FOR NAUSEA-NAME UNKNOWN Allergy Severe TONGUE Uncoded 01/07/18 10:40 SWELLING Home Medications: Ambulatory Orders Montelukast Na [Singulair -] 10 mg PO PRN PRN 06/25/14 Amlodipine Besylate [Norvasc -] 5 mg PO DAILY 05/22/17 Ascorbate Calcium [Vitamin C] 500 mg PO ONCE 05/22/17 Cetirizine HCl [Zyrtec -] 10 mg PO DAILY PRN 05/22/17 Albuterol Sulfate [Proair Hfa] 8.5 gm IH DAILY PRN 12/23/17 Cyclobenzaprine HCl [Flexeril 10 mg] 10 mg PO BID PRN 12/23/17 Gabapentin [Neurontin] 600 mg PO HS 12/23/17 Mometasone/Formoterol [Dulera 200 Mcg/5 Mcg Inhaler] 2 inh IH BID PRN 12/23/17 Pantoprazole Sodium [Protonix -] 40 mg PO DAILY #30 tablet.ec 06/01/18 metroNIDAZOLE [Flagyl -] 250 mg PO TID #20 tablet 06/01/18 predniSONE [Deltasone -] 60 mg PO DAILY #20 tablet 06/01/18 Asthma: Yes (MODERATE) Cardiac Disorders: Yes (NEGATIVE CATH) COPD: No Diabetes: Yes ("BORDERLINE") GI Disorders: Yes (H/O "BLOCKAGE" 2009, POSTOP COMPLICATIONS, NO SX INTERVENTION ) Disorders: No Hypercholesterolemia: Yes ("SLIGHTLY HIGH") Liver Disease: No Thyroid Disease: No - Surgical History Abdominal Surgery: No (Intestinal sx, FOR MULTIPLE SXS) Appendectomy: No Cardiac Surgery: No Cholecystectomy: No Lung Surgery: No Neurologic Surgery: No Orthopedic Surgery: Yes (RIGHT SHOULDER SURGERY) - Immunization History Immunization Up to Date: Yes - Psycho Social/Smoking Cessation Hx Smoking Status: No Smoking History: Never smoked Have you smoked in the past 12 months: No Number of Cigarettes Smoked Daily: 0 If you are a former smoker, when did you quit?: 2004 Hx Alcohol Use: No Drug/Substance Use Hx: No Substance Use Type: None Hx Substance Use Treatment: No *Physical Exam - Vital Signs Last Vital Signs Temp Pulse Resp BP Pulse Ox 97.9 F 70 20 130/80 100 07/20/19 19:24 07/20/19 19:24 07/20/19 19:24 07/20/19 19:24 07/20/19 19:24 ED Treatment Course - LABORATORY CBC & Chemistry Diagram: 07/20/19 21:10 07/20/19 21:10 Medical Decision Making - Medical Decision Making 07/20/19 20:47 Patient is a 54-year-old female with past medical history of chronic back pain, UC, Crohn's disease, HTN, SBO, asthma, partial bowel resection, oophorectomy, bilateral knee replacement, right shoulder replacement here with complaints of lower back pain that radiates to her abdomen x3 days. Patient states that she has chronic back issues which is usually achy. States that since June she started to have pain in her right side then shifted to her left side intermittently. Subsequently she saw pain management on 07/16/2019 and was given a shot of Toradol injection. States that she felt fine initially for a few hours but then Sunday evening started having intermittent sharp 10 out of 10 achy pain that radiated to her front bilaterally. Pain is worse with breathing or bending. She took Tylenol at 6 AM this morning states got some relief from the pain however has not taken any pain since and now her pain is severe. She denies any nausea, vomiting, fever, chills, diarrhea. Symptoms consistent with back pain however since patient has bowel issues and now has abdominal pain will send patient for CT abdomen pelvis rule out obstruction rule out Crohn's flare Labs CT scan abdomen pelvis with IV contrast Tylenol IV Reassess Patient has been comfortably in the ED sitting in chair watching television, in no acute distress. 07/21/19 00:00 Patient Full Name: JESSICA THACKER Patient Accession No: [id number] Patient : 1965 Reason for Exam: abd pain Referring Physician: Patient Name: KEDAR LOPEZ THIS IS A PRELIMINARY REPORT FROM [facility] DATE OF SERVICE: 2019-07-20 22:53:16 IMAGES: [id number] EXAM: ABDOMEN \\T\\ PELVIS CT WITH CONTR HISTORY: Abdominal pain COMPARISON: None. FINDINGS: There is lingular, right middle and left lower lobe scarring. The visualized lung bases are otherwise clear The liver is enlarged measuring 19 cm in craniocaudal dimension with otherwise normal appearance 2.2 cm left renal cyst The upper abdominal visceral organs are otherwise unremarkable Small umbilical hernia containing fat There is no bowel distention or appreciable thickening allowing for lack of intravenous contrast Small bowel anastomosis in the pelvis Normal appendix The pelvic organs are grossly normal. Images are degraded by streak artifact Bilateral inguinal hernias containing fat No intra-abdominal free air, free fluid or loculated collections One or more of the following dose reduction techniques were used: automated exposure control, adjustment of the mA and/or kV according to patient size, use of iterative reconstructive technique. THIS DOCUMENT HAS BEEN ELECTRONICALLY SIGNED James Oneal MD 07/20/2019 23:40 EST M.D. Please call [facility] [phone] ([phone]) with questions. INTERPRETING RADIOLOGIST: James Oneal MD Electronically Signed: Jul 20, 2019 11:42PM EST I discussed the physical exam findings, ancillary test results and final diagnoses with the patient. I answered all of the patient's questions. The patient was satisfied with the care received and felt comfortable with the discharge plan and treatment plan. The Patient agrees to follow up with the primary care physician within 24-72 hours. Discharge - Discharge Information Problems reviewed: Yes Clinical Impression/Diagnosis: Back pain Qualifiers: Back pain location: low back pain Chronicity: unspecified Back pain laterality : unspecified Sciatica presence: without sciatica Qualified Code(s): M54.5 - Low back pain Condition: Stable Disposition: HOME - Follow up/Referral Referrals: Ian Cole MD [Primary Care Provider] - - Patient Discharge Instructions Patient Printed Discharge Instructions: DI for Thoracic Back Pain, DI for Low Back Pain Additional Instructions: Your Discharge Instructions: You must call primary care physician within 24 hours to arrange follow-up. Return to the Emergency Department with any new, persistent or worsening symptoms, for fever, chills, SOB, dizziness or any other concerning changes that may occur. - Post Discharge Activity
[2019-07-20] MEDS ORDERED: ACETAMINOPHEN 1000 MG/100 ML VIAL (NON FORMULARY) IVPB ONE (20:50)
[2019-07-20 21:32] LABS: EOS % 1.6 % (0-4.5); HEMATOCRIT 38.9 % (32.4-45.2); HEMOGLOBIN 12.8 GM/dL (10.7-15.3); LYMPH % 41.2 % (8-40); MCH 30.8 pg (25.7-33.7); MCHC 32.8 g/dl (32.0-36.0); MEAN CELL VOLUME 93.8 fl (80-96); MONO % 7.7 % (3.8-10.2); NEUT % 48.5 % (42.8-82.8); PLATELET COUNT 196 K/MM3 (134-434); RBC 4.15 M/mm3 (3.60-5.2)
[2019-07-20] MEDS ORDERED: ACETAMINOPHEN INJECTION 100 ML IVPB ONE (21:37)
[2019-07-20 21:44] LABS: INR 0.92 (0.83-1.09); PROTHROMBIN TIME (PATIENT) 10.9 SEC (9.7-13.0)
[2019-07-20 21:58] LABS: ALBUMIN 4.1 g/dl (3.4-5.0); BILIRUBIN,TOTAL 0.3 mg/dL (0.2-1); BLOOD UREA NITROGEN 12.8 mg/dL (7-18); CALCIUM 9.4 mg/dL (8.5-10.1); CREATININE 0.7 mg/dL (0.55-1.3); POTASSIUM 4.2 mmol/L (3.5-5.1); TOT PROT 7.1 g/dl (6.4-8.2)
[2019-07-20 22:29] LABS: PH,URINE 6.5 (5.0-8.0); URINE APPEARANCE CLEAR; URINE BILIRUBIN NEGATIVE (NEGATIVE); URINE COLOR YELLOW; URINE GLUCOSE (UA) NEGATIVE (NEGATIVE); URINE KETONE NEGATIVE (NEGATIVE); URINE LEUK ESTERASE NEGATIVE (NEGATIVE); URINE NITRITE NEGATIVE (NEGATIVE); URINE PROTEIN NEGATIVE (NEGATIVE)
== END 2019-07-21 02:49 | disposition home or self-care (01) ==
LOC: JER 19:18
PROC: 3E033NZ Introduction of Analgesics, Hypnotics, Sedatives into Peripheral Vein, Percutaneous Approach (ICD-10-PCS; principal; 2019-07-20)
DX: M54.5 Low back pain (principal); J45.909 Unspecified asthma, uncomplicated; E11.9 Type 2 diabetes mellitus without complications; E78.00 Pure hypercholesterolemia, unspecified; Z98.61 Coronary angioplasty status; I10 Essential (primary) hypertension; Z87.19 Personal history of other diseases of the digestive system; Z96.653 Presence of artificial knee joint, bilateral; Z96.611 Presence of right artificial shoulder joint; Z90.721 Acquired absence of ovaries, unilateral; Z88.5 Allergy status to narcotic agent
CPT/HCPCS: 36415; 74177-TC; 80053; 81003; 85025; 85610; 96374; 99282-25; J0131

== ENCOUNTER 2021-03-07 11:19 | Emergency (ER) | payer OTHER ==
[2021-03-07 11:29] VITALS: TEMP 98.1; BMI 40.3
[2021-03-07] MEDS ORDERED: ACETAMINOPHEN 1000 MG/100 ML VIAL (NON FORMULARY) IVPB ONE (12:22)
[2021-03-07] MEDS ORDERED: SODIUM CHLORIDE 0.9% 500 ML INFUS.BAG IV ONE (12:22)
[2021-03-07] MEDS ORDERED: ACETAMINOPHEN INJECTION 100 ML IVPB ONE (12:33)
[2021-03-07 13:27] LABS: BASO % 0.9 % (0-2.0); EOS % 1.3 % (0-4.5); HEMATOCRIT 38.8 % (32.4-45.2); HEMOGLOBIN 12.9 GM/dL (10.7-15.3); LYMPH % 40.9 % (8-40); MCH 30.4 pg (25.7-33.7); MCHC 33.3 g/dl (32.0-36.0); MEAN CELL VOLUME 91.2 fl (80-96); MEAN PLT VOLUME 8.1 fl (7.5-11.1); MONO % 8.9 % (3.8-10.2); PLATELET COUNT 240 10^3/uL (134-434); RBC 4.25 M/mm3 (3.60-5.2); RDW 14.5 % (11.6-15.6); WHITE BLOOD COUNT 4.8 K/mm3 (4.0-10.0)
[2021-03-07 13:35] LABS: EPI CELLS 8 /uL (0-25.1); HYALINE CASTS 1 /uL (0-3.1); URINE APPEARANCE CLEAR; URINE BACTERIA 42 /uL (0-1359); URINE BILIRUBIN NEGATIVE (NEGATIVE); URINE COLOR YELLOW; URINE GLUCOSE (UA) NEGATIVE (NEGATIVE); URINE KETONE TRACE (NEGATIVE); URINE LEUK ESTERASE TRACE (NEGATIVE); URINE NITRITE NEGATIVE (NEGATIVE); URINE PROTEIN NEGATIVE (NEGATIVE); URINE RBC 12 /uL (0-23.9); URINE WBC 3 /uL (0-25.8)
[2021-03-07 13:54] LABS: CALCIUM 9.1 mg/dL (8.5-10.1)
[2021-03-07 13:55] LABS: BLOOD UREA NITROGEN 15.5 mg/dL (7-18)
[2021-03-07 13:58] LABS: CREATININE 0.6 mg/dL (0.55-1.3)
[2021-03-07 13:59] LABS: BILIRUBIN,TOTAL 0.4 mg/dL (0.2-1); TOT PROT 7.4 g/dl (6.4-8.2)
[2021-03-07 18:34] VITALS: BP 126/87; PULSE 80
== END 2021-03-07 18:34 | disposition home or self-care (01) ==
LOC: JER 11:19
PROC: 3E0333Z Introduction of Anti-inflammatory into Peripheral Vein, Percutaneous Approach (ICD-10-PCS; principal; 2021-03-07)
DX: R10.84 Generalized abdominal pain (principal)
CPT/HCPCS: 36415; 71046-TC-FY; 74177-TC; 80053; 81003; 83690; 85025; 86850; 86900; 86901; 87086; 99285-25; J0131; Q9967